=== PATIENT | female | born 1970 | race Caucasian/White ===

== ENCOUNTER 2018-11-19 01:20 | Outpatient (CLI) | payer OTHER, SELFPAY ==
[2018-11-19 10:31] LABS: Hemoglobin A1C 6.1 % (4.5-6.2)
[2018-11-19 10:53] LABS: BUN 19 mg/dL (7-18); CREATININE 0.83 mg/dL (0.55-1.02); Calcium 9.4 mg/dL (8.5-10.1); Chloride 103 mmol/L (98-107); Cholesterol 201 mg/dL (50-200); Glucose 107 mg/dL (70-100); HDL Cholesterol 35 mg/dL (40-60); LDL CHOLESTEROL 142 mg/dL (<100); Potassium 4.4 mmol/L (3.5-5.1); Sodium 139 mmol/L (136-145); Triglyceride 93 mg/dL (30-150)
== END 2018-11-19 01:40 ==
PROVIDERS: PCP Nurse Practitioner Family; Visit Provider Nurse Practitioner Family
DX: E78.5 Hyperlipidemia, unspecified (principal); E03.9 Hypothyroidism, unspecified; R73.01 Impaired fasting glucose
CPT/HCPCS: 36415; 80048; 80061; 83721; 83036; 84439; 84443

== ENCOUNTER 2019-02-27 13:27 | Outpatient (CLI) | payer OTHER, SELFPAY ==
[2019-02-27 15:29] LABS: Vitamin B12 312 pg/mL (193-986)
[2019-02-27 15:51] LABS: TSH (W/Ref FT4) 0.06 uIU/mL (0.36-3.74)
[2019-02-27 16:14] LABS: FREE T4 1.17 ng/dL (0.76-1.46)
[2019-02-28 13:57] LABS: Total Protein 6.8 g/dl (6.3-8.2)
== END 2019-02-27 13:47 ==
PROVIDERS: PCP Nurse Practitioner Family; Visit Provider Nurse Practitioner Family
DX: E03.9 Hypothyroidism, unspecified (principal); R20.2 Paresthesia of skin
CPT/HCPCS: 82607; 84165; 84439; 84443

== ENCOUNTER 2019-05-09 12:14 | Outpatient (CLI) | payer OTHER, SELFPAY ==
[2019-05-09 14:10] LABS: TSH (W/Ref FT4) 0.19 uIU/mL (0.36-3.74)
[2019-05-09 14:32] LABS: FREE T4 1.51 ng/dL (0.76-1.46)
== END 2019-05-09 12:34 ==
PROVIDERS: PCP Nurse Practitioner Family; Visit Provider Nurse Practitioner Family
DX: E03.9 Hypothyroidism, unspecified (principal)
CPT/HCPCS: 36415; 84439; 84443

== ENCOUNTER → 2019-11-30 08:39 | Outpatient (CLI) | payer BC, SELFPAY ==
[2019-11-30 18:00] LABS: TSH (W/Ref FT4) 39.49 uIU/mL (0.36-3.74)
[2019-11-30 18:01] LABS: FREE T4 0.67 ng/dL (0.76-1.46)
== END ==
PROVIDERS: PCP Nurse Practitioner Family; Visit Provider Nurse Practitioner Family
DX: E03.9 Hypothyroidism, unspecified (principal)
CPT/HCPCS: 36415; 84439; 84443

== ENCOUNTER → 2020-02-12 02:31 | Outpatient (CLI) | payer BC, SELFPAY ==
[2020-02-12 14:22] LABS: TSH (W/Ref FT4) 4.68 uIU/mL (0.36-3.74)
[2020-02-12 14:39] LABS: FREE T4 1.21 ng/dL (0.76-1.46)
== END ==
PROVIDERS: PCP Nurse Practitioner Family; Visit Provider Nurse Practitioner Family
DX: E03.9 Hypothyroidism, unspecified (principal)
CPT/HCPCS: 36415; 84439; 84443

== ENCOUNTER → 2020-02-22 02:53 | Outpatient (CLI) | payer BC, SELFPAY ==
[2020-02-22 08:36] LABS: Hemoglobin A1C 7.7 % (3.8-5.6)
[2020-02-22 09:38] LABS: ALT 32 U/L (14-59); AST 14 U/L (15-37); Albumin 3.9 g/dL (3.4-5.0); Alkaline Phosphatase 70 U/L (46-116); Anion Gap 8.3 mmol/L (3-11); BUN 17 mg/dL (7-18); Bilirubin, Total 0.4 mg/dL (0.2-1.0); CO2 26.7 mmol/L (21.0-32.0); CREATININE 0.78 mg/dL (0.55-1.02); Calcium 9.2 mg/dL (8.5-10.1); Chloride 101 mmol/L (98-107); Glucose 201 mg/dL (74-106); Potassium 4.8 mmol/L (3.5-5.1); Sodium 136 mmol/L (136-145); Total Protein 6.9 g/dL (6.4-8.2)
== END ==
PROVIDERS: PCP Nurse Practitioner Family; Visit Provider Nurse Practitioner Family
DX: R73.01 Impaired fasting glucose (principal); Z51.81 Encounter for therapeutic drug level monitoring
CPT/HCPCS: 36415; 80053; 83036

== ENCOUNTER 2020-03-21 15:14 | Outpatient (REF) | payer BC, SELFPAY ==
[2020-03-21 19:01] LABS: COMMENT (LAB VIEW ONLY) 34.61 mg/dL
== END 2020-03-21 15:34 ==
LOC: LBN 15:14
PROVIDERS: PCP Nurse Practitioner Family; Visit Provider Nurse Practitioner Family
DX: E11.9 Type 2 diabetes mellitus without complications (principal)
CPT/HCPCS: 82043; 82570

== ENCOUNTER 2020-04-05 06:06 | Emergency (ER) | payer SELFPAY ==
[2020-04-05 06:10] VITALS: BP 109/60; PULSE 85; RESP 18; TEMP 36.1; O2SAT 98
--- NOTE | 2020-04-05 06:10 | ED.GENADUL_ITS ---
Discharge Plan Disposition Patient Disposition: HOME Condition: Good Discharge Details Clinical Impression: Lower back injury Primary Care Provider: Bessie Maynard ED Provider: Blaine Lozano Meds and New Rx's Prescriptions: New ibuprofen 600 mg tablet 600 mg PO Q8H PRNQty: 15 RF: 0 cyclobenzaprine 10 mg tablet 10 mg PO Q8H PRN (Reason: Spasms) Qty: 15 RF: 0 Continued (DME) blood-glucose meter Misc See Rx Instructions .ROUTE .MEDSUPPLY Qty: 1 RF: 0 (DME) Blood Glucose Test Strip See Rx Instructions .ROUTE .MEDSUPPLY Qty: 100 RF: 3 (DME) lancets Misc See Rx Instructions .ROUTE .MEDSUPPLY Qty: 100 RF: 3 loratadine [Claritin] 10 MG tablet 10 mg PO PRN Qty: 1 RF: 0 gabapentin 100 mg capsule 100 - 200 mg PO HS PRN (Reason: pain) Qty: 180 RF: 3 furosemide 20 mg tablet 20 mg PO QAM Qty: 90 RF: 3 duloxetine [Cymbalta] 30 mg capsule,delayed release(DR/EC) 30 mg PO DAILY Qty: 90 RF: 3 levothyroxine 175 mcg tablet 175 mcg PO DAILY Qty: 90 RF: 3 valacyclovir [Valtrex] 500 mg tablet 500 mg PO BID RF: 0 Discharge Instructions Instructions: Low Back Strain (ED) Additional Instructions: Activity as tolerated but avoid significant bending or lifting. Important to stay active otherwise you will become more stiff with increasing pain. Recommend ice on and off for the first couple of days. Then switch to heat and gentle stretching. Ibuprofen and cyclobenzaprine for pain and spasm. Referral to occupational medicine for follow-up next week. Call today to make appointment. Return to ED for neurologic changes, bladder or bowel dysfunction, significantly worsening pain, other concerns or problems. Stand Alone Forms: Work Release Referrals: Occupational Medicine [Outside] Medical Decision Making Patient here with back injury after falling out of chair at work. There is no midline spinal tenderness. No indication for spine x-ray given mechanism and lack of spinal tenderness. There are no neurologic changes. Likely muscle strain and spasm from the fall. She will be given IM Toradol and p.o. Flexeril. Will be discharged on ibuprofen and Flexeril with referral to occupational medicine next week for recheck. Activity as tolerated. Ice on and off for the first couple of days before switching to heat. Gentle stretching. Return to ED if any neurologic changes, significantly worse pain, other concerns. HPI General Mode of arrival: ambulatory . Date/Time Provider Initiated Documentation: 04/05/20 06:10 . Limitations to Documentation: no limitations . Information obtained by: patient and RN notes reviewed . HPI Narrative: Patient presents to ED with low left sided back pain after falling out of a chair at work. She had bent over to tie her shoe. She was in a chair with wheels. It went backwards and she fell out of the chair. She struck her back on the chair while she fell. Not clear whether she hit the floor or not but she reports immediate pain in the left lower back that is described as burning in nature. She has no numbness or weakness in her legs. She has no midline pain. She was able to drive herself here. However, she reports significant pain and difficulty moving. She did not strike her head or have loss of consciousness. Related Data Home Medications Medication Instructions Recorded Confirmed loratadine [Claritin] 10 mg PO PRN #1 03/16/16 04/05/20 gabapentin 100 mg capsule 100 - 200 mg PO HS PRN #180 tab-cap 04/14/19 04/05/20 furosemide 20 mg tablet 20 mg PO QAM #90 tab 04/26/19 04/05/20 blood sugar diagnostic #100 each 03/21/20 03/21/20 blood-glucose meter #1 each 03/21/20 03/21/20 lancets #100 each 03/21/20 03/21/20 duloxetine 30 mg capsule,delayed 30 mg PO DAILY #90 tab-cap 03/28/20 04/05/20 release levothyroxine 175 mcg tablet 175 mcg PO DAILY #90 tab-cap 03/28/20 04/05/20 cyclobenzaprine 10 mg PO Q8H PRN #15 tab 04/05/20 ibuprofen 600 mg PO Q8H PRN #15 tab 04/05/20 valacyclovir [Valtrex] 500 mg PO BID 04/05/20 04/05/20 Previous Rx's Medication Instructions Recorded gabapentin 100 mg capsule 100 - 200 mg PO HS PRN #180 tab-cap 04/14/19 furosemide 20 mg tablet 20 mg PO QAM #90 tab 04/26/19 blood sugar diagnostic #100 each 03/21/20 blood-glucose meter #1 each 03/21/20 lancets #100 each 03/21/20 duloxetine 30 mg capsule,delayed 30 mg PO DAILY #90 tab-cap 03/28/20 release levothyroxine 175 mcg tablet 175 mcg PO DAILY #90 tab-cap 03/28/20 cyclobenzaprine 10 mg PO Q8H PRN #15 tab 04/05/20 ibuprofen 600 mg PO Q8H PRN #15 tab 04/05/20 Allergies Allergy/AdvReac Type Severity Reaction Status Date / Time oxycodone AdvReac Intermediate vomitting Verified 04/05/20 06:16 omeprazole AdvReac Mild GI upset Verified 04/05/20 06:16 Review of Systems Constitutional Constitutional: Denies fever(s) and Denies weakness Cardiovascular Cardiovascular: Denies dyspnea Respiratory Respiratory: Denies cough and Denies dyspnea Musculoskeletal Musculoskeletal: Reports back pain, Denies numbness and Denies tingling Neurologic Neurologic: Denies numbness, Denies tingling and Denies weakness [facility] Medical History (Updated 04/05/20 @ 06:26 by Blaine Lozano MD) Anxiety (11/24/12) Bilateral carpal tunnel syndrome 02/2019 Neuro consult w/ NCS showing mild; pt declined referral to Ortho (also had NCS's in 2014 & 2008) Chronic pain Gastroesophageal reflux disease Herpes simplex Hyperlipidemia (11/24/12) 10/2018 labwork: 10-year ASCVD risk = ~4.9% --> statin not indicated at this time Hypothyroidism (11/24/12) TSH goal = 1.5-2.0 Lateral epicondylitis of left elbow (08/13/16) Osteoarthritis of cervical spine (04/02/16) Plantar fasciitis Tobacco use disorder Type 2 diabetes mellitus Surgical History Status post cholecystectomy (~2009) Status post tubal ligation (~1998) Family History Mother Diabetes Hyperlipidemia Father Essential hypertension Hyperlipidemia Grandmother Diabetes Social History Smoking/Tobacco Use Status: Current every day Tobacco Type: cigarettes Tobacco: How many years used: 30 Alcohol Intake: never Drug use: Never Substance use type: does not use Caregiver/Support person: No Household members: spouse, children and other Details: 2 adopted children Housing: house Number of Children: 5 Communication Needs: None Do you need help understanding health information?: Rarely current occupation: [employer] Pets and animals: Yes Sexually active: No Do you think of yourself as: straight/heterosexual Current gender identity: female What is your relationship status?: How often do you talk on the phone with friends or family?: three or more times per week How often do you get together with friends or relatives?: never How often do you attend synagogue or anabaptism services?: decline to answer Do you belong to any clubs or organized social groups?: no Panel score (0-1 are the most socially isolated patients): 2 What type of physical activity do you participate in: none Frequency: 5-6 times per week Tabitha/Islam: None Special tabitha needs: No Seatbelt use: never Helmet use: Yes Helmet use: sometimes Drive intox or ride w/intox skip load driver: No Water heater temp set <120 deg: Yes Working smoke detector in home: Yes Fire extinguisher in home: Yes Carbon monox detector in home: Yes Firearms in home: Yes Firearms unloaded and locked: Yes Do you feel safe at home: Yes Do you feel safe in your relationship?: Yes Exam Narrative Exam Narrative: Vitals: Afebrile. Normal vitals and room air pulse ox. Const: WDWN female in NAD. HEENT: NC/AT. Normal facial exam. Eyes: Normal conjunctiva and sclera. Neck: Supple. Trachea midline. Lungs: Normal respiratory effort. Back: No midline spinal tenderness. Tender palpation left lower lumbar region. Decreased range of motion. Sitting stiffly upright on stretcher. Neuro: A+O x 3. Normal speech, mentation. Cranial nerves II - XII grossly intact. No gross motor or sensory deficit. She has sensation and normal strength in lower extremities. She does walk stiffly and slowly. Skin: Warm and dry without abrasion
[2020-04-05] MEDS: Cyclobenzaprine 10 MG TAB PO (06:22)
[2020-04-05] MEDS: Ketorolac 30 MG/ML VIAL IM (06:23)
== END 2020-04-05 06:39 | disposition home or self-care (01) ==
LOC: ER 06:32
PROVIDERS: Emergency Provider Emergency Medicine; PCP Nurse Practitioner Family
DX: S39.82XA Other specified injuries of lower back, initial encounter (principal); W07.XXXA Fall from chair, initial encounter; Y99.0 Civilian activity done for income or pay; E11.9 Type 2 diabetes mellitus without complications
CPT/HCPCS: 96372; 99284; J1885

== ENCOUNTER 2020-10-07 10:24 | Outpatient (CLI) | payer OTHER, SELFPAY ==
[2020-10-08 13:47] LABS: COVID-19 RT-PCR UVMMC Result Negative (Negative)
== END 2020-10-07 10:25 | disposition home or self-care (01) ==
PROVIDERS: PCP Nurse Practitioner Family; Visit Provider Nurse Practitioner Family
DX: Z20.828 Contact with and (suspected) exposure to other viral communicable diseases (principal)
CPT/HCPCS: U0003

== ENCOUNTER 2021-01-22 16:41 | Outpatient (REF) | payer OTHER, SELFPAY ==
--- NOTE | 2021-01-22 15:40 | PAPFT_PTH ---
PATIENT: Danni Gamble LOC: [facility] U#:[id number] AGE/SX: 51/F ROOM: RE01/22/[address]: Samira Jarvis DO : 1970 BED: DIS: 01/22/2021 SPEC #: [id number] RECD: 01/22/21 18:19 STATUS: ARRON REQ #: [id number] MENDY: 01/22/21 15:[address]: Samira Jarvis DEPT: [facility] Cytology RECD BY: Jovana Cueva ENTERED: 01/22/21 18:20 SP TYPE: PAPFT ELIZABETH DR: Bessie Maynard, CESAR Tissues: 1 - CX/ENDOCX FOR PAP SMEARS Procedures: PAP THIN PREP/[facility] Screening Comments: [id number] (UNSATISFACTORY FOR EVALUATION)
== END 2021-01-22 16:42 | disposition home or self-care (01) ==
LOC: LBN 16:41
PROVIDERS: PCP Nurse Practitioner Family; Visit Provider Obstetrics & Gynecology
DX: Z12.4 Encounter for screening for malignant neoplasm of cervix (principal); R87.615 Unsatisfactory cytologic smear of cervix
CPT/HCPCS: 88142

== ENCOUNTER 2021-03-04 01:50 | Outpatient (CLI) | payer OTHER, SELFPAY ==
--- NOTE | 2021-03-04 08:15 | DI.US_ITS ---
Exam(s) US PELVIS TRANSVAGINAL EXAM: US PELVIS TRANSVAGINAL CLINICAL HISTORY: Check endometrial stripe, postmenopausal bleeding, N95.0 TECHNIQUE: Transabdominal and transvaginal imaging was performed using standard protocol. COMPARISON: No exams were available for comparison FINDINGS: KIDNEYS: Kidneys are symmetric in size. No evidence of renal calculi. No evidence of hydronephrosis. No renal mass or cyst identified. Transabdominal images are limited by empty bladder. UTERUS: Anteverted. 7.4 x 4.4 x 4.9 cm Endometrium: 2 millimeters Myometrium: Unremarkable. Cervix: Multiple nabothian cysts. OVARIES: Right: Cyst or mass: None. Left: Not visualized DOPPLER: Color: Symmetric and uniform flow to the right ovary. No hyperemia. Duplex: Normal ovarian arterial waveforms visualized. CUL-DE-SAC: Free fluid: None. IMPRESSION: 1. Multiple nabothian cysts. No visible fibroids. Normal-appearing endometrial stripe. 2. Nonvisualization of the left ovary. DATA REPOSITORY:
--- NOTE | 2021-03-04 15:22 | DI.MAMMO_ITS ---
Exam(s) MAMMO SCREENING EXAM: MAMMO SCREENING CLINICAL HISTORY: screening, Z12.39 TECHNIQUE: Mammograms were interpreted according to the usual protocol including computer analysis w [employer]odaplanes CAD system, tomosynthesis and C-view imaging. COMPARISON: No exams were available for comparison. Baseline examination. FINDINGS: The breasts are composed of scattered fibroglandular densities, Breast Density category B. No suspicious masses or suspicious microcalcifications are seen. No skin thickening or abnormal axillary lymph nodes are seen. There has been no significant change from prior exams. IMPRESSION: BI-RADS Category 1, Negative mammogram Yearly screening mammography is recommended. Breast Density - Category B, scattered fibroglandular densities. A negative radiographic report should not delay biopsy if a dominant or clinically suspicious mass is present. Up to ten percent of cancers are not identified on mammography. A negative report may reinforce clinical impression. Adenosis and dense breasts may obscure an underlying neoplasm. False positive reports average 6 to 10%. Patient will receive a letter notifying them of these results.
== END 2021-03-04 02:10 ==
PROVIDERS: PCP Nurse Practitioner Family; Visit Provider Obstetrics & Gynecology
DX: Z12.31 Encounter for screening mammogram for malignant neoplasm of breast (principal); N95.0 Postmenopausal bleeding; R91.8 Other nonspecific abnormal finding of lung field; N88.8 Other specified noninflammatory disorders of cervix uteri
CPT/HCPCS: 77063; 77067; 76830; 76856

== ENCOUNTER 2021-08-05 02:02 | Outpatient (CLI) | payer OTHER, SELFPAY ==
[2021-08-05 09:07] LABS: Hemoglobin A1C 6.7 % (<5.7)
[2021-08-05 09:08] LABS: ALT 30 U/L (14-59); AST 14 U/L (15-37); Albumin 4.3 g/dL (3.4-5.0); Alkaline Phosphatase 70 U/L (46-116); BUN 20 mg/dL (7-18); Bilirubin, Total 0.4 mg/dL (0.2-1.0); CO2 28.5 mmol/L (21.0-32.0); CREATININE 0.8 mg/dL (0.55-1.02); Calcium 9.2 mg/dL (8.5-10.1); Calculated LDL 158 mg/dL (<100); Cholesterol 231 mg/dL (<200); Glucose 145 mg/dL (74-106); HDL Cholesterol 40 mg/dL (40-60); TSH (W/Ref FT4) 16.33 uIU/mL (0.36-3.74); Total Protein 7.5 g/dL (6.4-8.2); Triglyceride 168 mg/dL (<150)
[2021-08-05 09:10] LABS: Anion Gap 8.5 mmol/L (3-11); Chloride 100 mmol/L (98-107); Potassium 4.5 mmol/L (3.5-5.1); Sodium 137 mmol/L (136-145)
[2021-08-05 09:35] LABS: FREE T4 0.77 ng/dL (0.76-1.46)
[2021-08-05 17:59] LABS: FSH 15.3 mIU/mL (See Note)
== END 2021-08-05 02:03 | disposition home or self-care (01) ==
LOC: LBO 02:03
PROVIDERS: Obstetrics & Gynecology; PCP Nurse Practitioner Family; Visit Provider Nurse Practitioner Family
DX: E11.65 Type 2 diabetes mellitus with hyperglycemia (principal); E03.9 Hypothyroidism, unspecified; E78.5 Hyperlipidemia, unspecified; N95.0 Postmenopausal bleeding
CPT/HCPCS: 36415; 80053; 80061; 83001; 83036; 84439; 84443

== ENCOUNTER 2021-10-29 03:04 | Outpatient (CLI) | payer OTHER, SELFPAY | END 2021-10-29 03:05 | disposition home or self-care (01) | PROVIDERS: PCP Nurse Practitioner Family; Visit Provider Nurse Practitioner Family ==

== ENCOUNTER 2021-11-21 01:58 | Outpatient (CLI) | payer OTHER, SELFPAY ==
[2021-11-21 14:56] LABS: TSH (W/Ref FT4) 0.22 uIU/mL (0.36-3.74)
[2021-11-21 15:13] LABS: FREE T4 1.44 ng/dL (0.76-1.46)
== END 2021-11-21 01:59 | disposition home or self-care (01) ==
LOC: LBO 01:59
PROVIDERS: PCP Nurse Practitioner Family; Visit Provider Nurse Practitioner Family
DX: E03.9 Hypothyroidism, unspecified (principal)
CPT/HCPCS: 36415; 84439; 84443

== ENCOUNTER 2022-01-09 01:42 | Outpatient (CLI) | payer OTHER, SELFPAY ==
[2022-01-09 12:20] LABS: TSH (W/Ref FT4) 0.14 uIU/mL (0.36-3.74)
[2022-01-09 12:35] LABS: FREE T4 1.32 ng/dL (0.76-1.46)
== END 2022-01-09 01:43 | disposition home or self-care (01) ==
LOC: LBO 01:43
PROVIDERS: PCP Nurse Practitioner Family; Visit Provider Nurse Practitioner Family
DX: E03.9 Hypothyroidism, unspecified (principal)
CPT/HCPCS: 36415; 84439; 84443

== ENCOUNTER 2022-09-25 00:36 | Outpatient (CLI) | payer OTHER, SELFPAY ==
--- NOTE | 2022-09-25 07:15 | DI.RAD_ITS ---
Exam(s) XR SHOULDER RT COMPLETE 2+V EXAM: XR SHOULDER RT COMPLETE 2+V CLINICAL HISTORY: acute on chronic R shoulder pain,m25.511. TECHNIQUE: 2D digital imaging was performed. COMPARISON: No exams were available for comparison FINDINGS: Five views: No evidence of acute fracture nor dislocation nor diminution of the subacromial space. No obvious de generative changes in the glenohumeral and AC joints. The main finding here is calcific density in the soft tissues adjacent to the greater tuberosity cons istent with calcific rotator cuff tendinitis. This calcific density measures 8 by 4 millimeters. IMPRESSION: Calcific rotator cuff tendinitis. DATA REPOSITORY: RADIATION DOSE DELIVERED:
== END 2022-09-25 00:56 ==
LOC: DI 00:36
PROVIDERS: PCP Nurse Practitioner Family; Visit Provider Nurse Practitioner Family
DX: M25.511 Pain in right shoulder (principal); M75.31 Calcific tendinitis of right shoulder
CPT/HCPCS: 73030

== ENCOUNTER 2022-10-07 02:52 | Outpatient (CLI) | payer OTHER, SELFPAY ==
[2022-10-07 07:46] LABS: ALT 28 U/L (14-59); AST 15 U/L (15-37); Albumin 4.2 g/dL (3.4-5.0); Alkaline Phosphatase 84 U/L (46-116); Anion Gap 8.3 mmol/L (3-11); BUN 16 mg/dL (7-18); Bilirubin, Total 0.4 mg/dL (0.2-1.0); CO2 29.7 mmol/L (21.0-32.0); CREATININE 0.9 mg/dL (0.55-1.02); Calcium 9.6 mg/dL (8.5-10.1); Chloride 103 mmol/L (98-107); Estimated GFR 76.92 (mL/min/1.73m2); Glucose 161 mg/dL (74-106); Hemoglobin A1C 7.4 % (<5.7); Sodium 141 mmol/L (136-145); Total Protein 7.9 g/dL (6.4-8.2)
[2022-10-07 07:47] LABS: COMMENT (LAB VIEW ONLY) 106.09 mg/dL; Microalb ug/mg Crea 7.4 ug/mg Cr
[2022-10-08 10:14] LABS: Hepatitis C Ab w Rflx HCV PCR Negative (Negative)
[2022-10-08 10:33] LABS: HIV-1/2 Ag & Ab Screen Negative (Negative)
== END 2022-10-07 02:53 | disposition home or self-care (01) ==
LOC: LBO 02:52
PROVIDERS: PCP Nurse Practitioner Family; Visit Provider Nurse Practitioner Family
DX: E11.65 Type 2 diabetes mellitus with hyperglycemia (principal); E03.9 Hypothyroidism, unspecified; Z11.4 Encounter for screening for human immunodeficiency virus [HIV]; Z11.59 Encounter for screening for other viral diseases
CPT/HCPCS: 36415; 80053; 86803; 87389; 82043; 82570; 83036

== ENCOUNTER 2022-12-27 08:18 | Emergency (ER) | payer OTHER, SELFPAY ==
[2022-12-27] VITALS (24 sets, daily range): BP systolic 63–109; BP diastolic 38–80; PULSE 68–109; RESP 16; TEMP 36.4; O2SAT 95–99
--- NOTE | 2022-12-27 09:02 | W.ED.GENAD ---
Discharge Plan Disposition Patient Disposition: Home Discharge Details Clinical Impression: Nausea & vomiting, Viral gastroenteritis, Hyponatremia, Acute hypokalemia, Hypocalcemia, Dehydration Primary Care Provider: Bessie Maynard ED Provider: Norm Bain Home Meds and New Rx's Prescriptions: New ondansetron 4 mg tablet,disintegrating 4 mg PO Q6H PRNQty: 14 0RF Continued (DME) Blood Glucose Test Strip See Rx Instructions .ROUTE .MEDSUPPLY Qty: 100 3RF Rx Instructions: As directed to check blood glucose daily. No insulin. Dispense covered brand. diclofenac sodium 1 % gel 2 - 4 g topical QID PRN (Reason: pain) Qty: 100 0RF Rx Instructions: 2G for upper extremity joints; 4G for lower extremity joints (DME) blood-glucose meter Misc See Rx Instructions .ROUTE .MEDSUPPLY Qty: 1 0RF Rx Instructions: As directed to check blood glucose daily. No insulin. Dispense covered brand. valacyclovir 1 gram tablet 2,000 mg PO BID Qty: 4 2RF Rx Instructions: Take 2 g BID for 1 day for recurrent orolabial herpes Ozempic 0.25 mg or 0.5 mg(2 mg/1.5 mL) pen injector 0.5 mg subcut QWEEK Qty: 4 3RF Rx Instructions: Take 0.25 mg once weekly for first 4 weeks, then increase to 0.5 mg once weekly thereafter. acetaminophen 500 mg tablet 500 - 1,000 mg PO TID PRN (Reason: pain) Qty: 270 3RF (DME) lancets Misc See Rx Instructions .ROUTE .MEDSUPPLY Qty: 100 3RF Rx Instructions: As directed to check blood glucose daily. No insulin. Dispense covered brand. levothyroxine 175 mcg tablet See Rx Instructions .ROUTE .COMPLEX Qty: 90 0RF Dose Instruction: TAKE ONE TABLET BY MOUTH EVERY MORNING ON EMPTY STOMACH; AT LEAST 30-60 MIN BEFORE FOOD Rx Instructions: TAKE ONE TABLET BY MOUTH EVERY MORNING ON EMPTY STOMACH; AT LEAST 30-60 MIN BEFORE FOOD celecoxib 100 mg capsule See Rx Instructions .ROUTE .COMPLEX Qty: 60 0RF Dose Instruction: TAKE ONE CAPSULE BY MOUTH TWICE A DAY Rx Instructions: TAKE ONE CAPSULE BY MOUTH TWICE A DAY furosemide 20 mg tablet See Rx Instructions .ROUTE .COMPLEX Qty: 90 3RF Dose Instruction: TAKE ONE TABLET BY MOUTH EVERY MORNING Rx Instructions: TAKE ONE TABLET BY MOUTH EVERY MORNING pantoprazole 40 mg tablet,delayed release (DR/EC) See Rx Instructions .ROUTE .COMPLEX Qty: 90 3RF Dose Instruction: TAKE ONE TABLET BY MOUTH EVERY MORNING AT LEAST 30 MINUTES BEFORE FIRST MEAL Rx Instructions: TAKE ONE TABLET BY MOUTH EVERY MORNING AT LEAST 30 MINUTES BEFORE FIRST MEAL gabapentin 100 mg capsule See Rx Instructions .ROUTE .COMPLEX Qty: 180 3RF Dose Instruction: TAKE ONE TO TWO CAPSULES BY MOUTH AT BEDTIME NEEDED FOR PAIN Rx Instructions: TAKE ONE TO TWO CAPSULES BY MOUTH AT BEDTIME NEEDED FOR PAIN atorvastatin 10 mg tablet See Rx Instructions .ROUTE .COMPLEX Qty: 90 3RF Dose Instruction: TAKE ONE TABLET BY MOUTH EVERY DAY Rx Instructions: TAKE ONE TABLET BY MOUTH EVERY DAY duloxetine 30 mg capsule,delayed release(DR/EC) See Rx Instructions .ROUTE .COMPLEX Qty: 90 3RF Dose Instruction: TAKE ONE CAPSULE BY MOUTH EVERY DAY Rx Instructions: TAKE ONE CAPSULE BY MOUTH EVERY DAY metformin 500 mg tablet extended release 24 hr See Rx Instructions .ROUTE .COMPLEX Qty: 360 3RF Dose Instruction: TAKE 4 TABLETS BY MOUTH EVERY DAY WITH EVENING MEAL Rx Instructions: TAKE 4 TABLETS BY MOUTH EVERY DAY WITH EVENING MEAL Discharge Instructions Instructions: Dehydration (ED), Gastroenteritis (ED) Additional Instructions: You were seen in the emergency department for nausea vomiting and diarrhea. We performed labs that showed some electrolyte abnormalities likely due to dehydration. Your testing was otherwise unremarkable. Your symptoms improved with some IV fluids and nausea medications here. You likely had some dehydration in the setting of a viral gastroenteritis or GI bug. Continue to take Imodium per box directions at home for any diarrhea but stopped taking this at the first signs that the diarrhea is resolving otherwise you may develop constipation. You can continue all your home medications. I have sent a prescription for a nausea medication called ondansetron/Zofran that you can use as needed for nausea or vomiting. Drink plenty of fluids to stay hydrated. Return to the emergency department for worsening nausea or vomiting, any abdominal pain, high fevers or chills, or any other symptoms that are worrisome to you. Follow-up with your primary care doctor. Stand Alone Forms: Work Release Referrals: Bessie Maynard NP [Primary Care Provider] - 1 week Discharge Data Discharge Physician: Norm Bain Medical Decision Making Labs unremarkable. Has some mild electrolyte abnormalities likely secondary to dehydration. Given IV fluids and expect that these will improve. Just with the mild hyponatremia and hypokalemia now tolerating p.o. so should be able to adequately resuscitate these herself at home. She feels markedly improved after IV fluids, analgesia, and nausea medication. Likely represents a viral gastroenteritis. Still without fever or any abdominal tenderness so no role for imaging of the abdomen. She had 1 episode of low blood pressure that did not recur. Might have been measurement error or secondary to dehydration but regardless has now resolved. She feels better and tolerating p.o. and would like to go home. I think that this is reasonable. Will discharge with return precautions. Medical Records Medical records reviewed: Yes I reviewed the patient's medical records. Lab Data Lab results reviewed: Yes I reviewed the patient's lab results. Labs: Mild hyponatremia, mild hypocalcemia, mild hypokalemia. Otherwise labs grossly unremarkable. HPI General Mode of arrival: ambulatory. Date/Time Provider Initiated Documentation: 12/27/22 08:44. Limitations to Documentation: no limitations. Information obtained by: patient. HPI Narrative: 52-year-old female with history of diabetes, GERD, hypothyroidism, is now presenting with nausea vomiting and diarrhea. Started Wednesday. Primarily started with nausea and vomiting. Followed by diarrhea. Worse over the last 24 hours. Going to the bathroom every 30 minutes. Took some Imodium this morning and was still having issues so came here. Having abdominal cramping but no other pain. No fevers or chills presently. Endorsing some body aches. No recent travel or surgeries. No recent fresh water drinking sources. No recent new foods or raw foods. No recent antibiotic use. She was worried and came here. Related Data Home Medications Medication Instructions Recorded Confirmed blood-glucose meter #1 ea 03/21/20 12/27/22 valacyclovir 1 gram tablet 2,000 mg PO BID recurrent 08/08/21 12/27/22 orolabial HSV #4 tab-caps lancets #100 ea 10/27/21 12/27/22 levothyroxine 175 mcg tablet See Rx Instructions .Route 03/19/22 12/27/22 .COMPLEX #90 tabs blood sugar diagnostic (Blood #100 ea 04/01/22 12/27/22 Glucose Test strips) diclofenac sodium 1 % topical gel 2 - 4 g topical QID PRN pain #100 04/01/22 12/27/22 grams acetaminophen 500 mg tablet 500 - 1,000 mg PO TID PRN pain 10/16/22 12/27/22 #270 tab-caps semaglutide 0.25 mg or 0.5 mg (2 0.5 mg (0.4 mL) subcut QWEEK #4 10/16/22 10/21/22 mg/1.5 mL) subcutaneous pen SYRGS injector (Ozempic) atorvastatin 10 mg tablet See Rx Instructions .Route 11/23/22 12/27/22 .COMPLEX #90 tabs celecoxib 100 mg capsule See Rx Instructions .Route 11/23/22 12/27/22 .COMPLEX #60 caps duloxetine 30 mg capsule,delayed See Rx Instructions .Route 11/23/22 12/27/22 release .COMPLEX #90 caps furosemide 20 mg tablet See Rx Instructions .Route 11/23/22 12/27/22 .COMPLEX #90 tabs gabapentin 100 mg capsule See Rx Instructions .Route 11/23/22 12/27/22 .COMPLEX #180 caps metformin 500 mg tablet,extended See Rx Instructions .Route 11/23/22 12/27/22 release 24 hr .COMPLEX #360 tabs pantoprazole 40 mg tablet,delayed See Rx Instructions .Route 11/23/22 12/27/22 release .COMPLEX #90 tabs ondansetron 4 mg disintegrating 4 mg PO Q6H PRN #14 tabs 12/27/22 tablet Previous Rx's Medication Instructions Recorded blood-glucose meter #1 ea 03/21/20 valacyclovir 1 gram tablet 2,000 mg PO BID recurrent 08/08/21 orolabial HSV #4 tab-caps lancets #100 ea 10/27/21 levothyroxine 175 mcg tablet See Rx Instructions .Route 03/19/22 .COMPLEX #90 tabs blood sugar diagnostic (Blood #100 ea 04/01/22 Glucose Test strips) diclofenac sodium 1 % topical gel 2 - 4 g topical QID PRN pain #100 04/01/22 grams acetaminophen 500 mg tablet 500 - 1,000 mg PO TID PRN pain 10/16/22 #270 tab-caps semaglutide 0.25 mg or 0.5 mg (2 0.5 mg (0.4 mL) subcut QWEEK #4 10/16/22 mg/1.5 mL) subcutaneous pen SYRGS injector (Ozempic) atorvastatin 10 mg tablet See Rx Instructions .Route 11/23/22 .COMPLEX #90 tabs celecoxib 100 mg capsule See Rx Instructions .Route 11/23/22 .COMPLEX #60 caps duloxetine 30 mg capsule,delayed See Rx Instructions .Route 11/23/22 release .COMPLEX #90 caps furosemide 20 mg tablet See Rx Instructions .Route 11/23/22 .COMPLEX #90 tabs gabapentin 100 mg capsule See Rx Instructions .Route 11/23/22 .COMPLEX #180 caps metformin 500 mg tablet,extended See Rx Instructions .Route 11/23/22 release 24 hr .COMPLEX #360 tabs pantoprazole 40 mg tablet,delayed See Rx Instructions .Route 11/23/22 release .COMPLEX #90 tabs ondansetron 4 mg disintegrating 4 mg PO Q6H PRN #14 tabs 12/27/22 tablet Allergies Allergy/AdvReac Type Severity Reaction Status Date / Time empagliflozin Allergy Mild Itching Verified 12/27/22 08:26 oxycodone AdvReac Intermediate vomitting Verified 12/27/22 08:26 omeprazole AdvReac Mild GI upset Verified 12/27/22 08:26 General Stated Complaint: Nausea/Vomit/Diar CAM: 3 Review of Systems Constitutional Constitutional: Denies chills, Denies fever(s) and Denies headache(s) Eyes Eyes: Denies change in vision ENT Ears, Nose, Mouth, and Throat: Denies headache(s) and Denies odynophagia Cardiovascular Cardiovascular: Denies chest pain and Denies dyspnea Respiratory Respiratory: Denies dyspnea Gastrointestinal Gastrointestinal: Denies abdominal pain, Reports diarrhea, Reports nausea, Denies odynophagia and Reports vomiting Genitourinary Genitourinary: Denies abnormal vaginal bleeding, Denies dysuria, Denies urinary urgency and Denies vaginal discharge Musculoskeletal Musculoskeletal: Denies myalgias Integumentary/Breasts Skin/Breast: Denies changing lesions Neurologic Neurologic: Denies behavioral changes and Denies headache(s) Psychiatric Psychiatric: Denies behavioral changes Endocrine Endocrine: Denies heat intolerance Hematologic/Lymphatic Hematologic/Lymphatic: Denies lymphadenopathy PFSH All Active Problems (Updated 12/27/22 @ 11:11 by Norm Bain MD) Nausea & vomiting (Acute) Viral gastroenteritis (Acute) Hyponatremia (Acute) Acute hypokalemia (Acute) Hypocalcemia (Acute) Dehydration (Acute) Diabetic retinopathy of both eyes (Acute 02/06/22) bilateral Piriformis syndrome of left side (Acute) Perimenopause (Acute) Urinary incontinence (Acute) Postmenopausal bleeding (Acute) Low back pain (Acute) Type 2 diabetes mellitus (Acute) Osteoarthritis of cervical spine (Chronic 04/02/16) Hypothyroidism (Chronic 11/24/12) TSH goal = 1.5-2.0 Herpes simplex (Chronic) Fatigue (Chronic) Anxiety (Chronic 11/24/12) Tobacco use disorder (Chronic) Bilateral carpal tunnel syndrome (Chronic) 02/2019 Neuro consult w/ NCS showing mild; pt declined referral to Ortho (also had NCS's in 2014 & 2008) Hyperlipidemia (Chronic 11/24/12) 07/2021 labwork: 10-year ASCVD risk = ~3.7% --> statin not indicated at this time Knee pain (Chronic) Bilateral Medical History Chronic pain Encounter for insertion of mirena IUD (08/29/15) placed for menorrhagia 08/06/15 Lateral epicondylitis of left elbow (08/13/16) Menorrhagia, premenopausal (06/25/15) Plantar fasciitis Surgical History Status post cholecystectomy (~2009) Status post tubal ligation (~1998) Family History Mother Diabetes Hyperlipidemia Father Essential hypertension Hyperlipidemia Grandmother Diabetes Social History Smoking/Tobacco Use Status: Current every day Tobacco Type: cigarettes Tobacco: How many years used: 30 Smoking risk assessment performed?: Yes Alcohol Intake: current Alcohol Intake frequency: holidays/special occasions only Alcohol type: wine Drug use: Never Substance use type: does not use Adopted: No Caregiver/Support person: No Foster care: No Household members: spouse, children and other Details: 2 adopted children Housing: house Number of Children: 6 number of grandchildren: 4 Communication Needs: None Education Level: high school Do you need help understanding health information?: Rarely current occupation: Cook Pets and animals: Yes Pets and animals: dog(s) Sexually active: No Do you think of yourself as: straight/heterosexual Current gender identity: female What is your relationship status?: How often do you talk on the phone with friends or family?: once per week How often do you get together with friends or relatives?: never How often do you attend jehovah's witness or buddhist services?: decline to answer Do you belong to any clubs or organized social groups?: no Panel score (0-1 are the most socially isolated patients): 1 What type of physical activity do you participate in: none Tabitha/Anabaptist: None Special tabitha needs: No Seatbelt use: always Helmet use: Yes Helmet use: sometimes Drive intox or ride w/intox test car driver: No Water heater temp set <120 deg: Yes Working smoke detector in home: Yes Fire extinguisher in home: Yes Carbon monox detector in home: Yes Firearms in home: Yes Firearms unloaded and locked: Yes Do you feel safe at home: Yes Do you feel safe in your relationship?: Yes Exam Const General: cooperative Nutritional Appearance: average body habitus Orientation: alert, awake and oriented x3 HENMT Head: normal to inspection Ears: external ears normal Mouth: moist mucous membranes Eyes Pupils: PERRL EOM: EOM intact bilaterally and No nystagmus Neck Neck: full ROM and no tracheal deviation Chest Chest: normal inspection of the chest Resp Auscultation: clear to auscultation bilaterally Cardio Rate: regular rate Rhythm: regular rhythm GI Inspection: normal to inspection Palpation: soft, no guarding, not rigid and nontender Other: Reporting intermittent abdominal cramping but no tenderness on examination. Back/Spine/Pelvis Back: No no CVA tenderness Thoracic/Lumbar Spine: thoracic and lumbar spine normal to inspection Skin General skin exam: no rashes or lesions noted Neuro General: patient alert, patient awake and patient oriented x3 Cranial Nerves: CN's II-XI intact bilaterally, PERRL and no nystagmus Cognition: normal cognition Motor: muscle tone normal throughout and strength 5/5 throughout Sensory Exam: no sensory deficits noted Extrem General: normal to inspection Course Reevaluation(s) Initial Evaluation: 52-year-old female presents with nausea vomiting and diarrhea. Suspect this represents a viral gastroenteritis. Has some signs of dehydration we will give some IV fluids. We will give some nausea medications help with her symptoms. Can send stool studies if she gives us a sample here but low suspicion for any serious bacterial pathogen given no risk factors or red flag signs. No risk factors for C. difficile but can send sample if patient is able to give us a stool sample. We will get broad labs look for electrolyte or metabolic cause of the patient's symptoms. Doubt biliary source of the patient's nausea but will send biliary labs look for signs of hepatitis, pancreatitis, or biliary disease. We will give some Toradol given the muscle aches likely from the viral gastroenteritis. We will continue to monitor while awaiting initial testing and response to therapy. Vital Signs Vital signs: Vital Signs Temperature 36.4 C 12/27/22 08:21 Pulse 109 H 12/27/22 08:21 Respiratory Rate 16 12/27/22 08:21 Blood Pressure 109/79 12/27/22 08:21 Pulse Oximetry 99 12/27/22 08:21 Temperature 36.4 C 12/27/22 08:21 Temperature Source Oral 12/27/22 08:21 Pulse 109 H 12/27/22 08:21 Respiratory Rate 16 12/27/22 08:21 Respiratory Effort Normal, Non-Labored 12/27/22 08:42 Blood Pressure 109/79 12/27/22 08:21 Blood Pressure Position Sitting 12/27/22 08:21 Pulse Oximetry 99 12/27/22 08:21 Oxygen Delivery Method Room Air 12/27/22 08:21 Oxygen Flow Rate 0 12/27/22 08:21 Pain Level 6 12/27/22 08:21 PAWSS Have you Been Recently Intoxicated or Drunk Within the Last 30 days?: No Have you Ever Experienced Previous Episodes of Alcohol Withdrawal?: No Have you ever Experienced Withdrawal Seizures?: No Have you ever Experienced Delirium Tremens(DT)s?: No Have you ever undergone Alcohol Rehabilitation Treatment (i.e, inpt ot outpatient treatment programs)?: No Have you ever Experienced Blackouts?: No Have you ever Combined Alcohol with other Downers within the last 90 days?: No Have you ever Combined Alcohol with any other Substance of Abuse during the last 90 days?: No Positive Blood Alcohol level on Presentation? [PCS.BAL]: No Evidence of Increased Autonomic Activity (i.e. HR>120, tremor, sweating, agitation, nausea)?: No Result: 0
[2022-12-27] MEDS: Ondansetron 4 MG/2 ML VIAL IVP ×2 (09:04→10:46)
[2022-12-27] MEDS: Ketorolac 15 MG/ML VIAL IVP ×2 (09:04→10:46)
[2022-12-27] MEDS: Lactated Ringers 1,000 ML 1000 ML IV (09:05)
[2022-12-27 09:06] LABS: Abs Immature Grans 0.02 10^3/uL (0.0-0.06); Absolute Basophil Count 0.03 10^3/uL (0.0-0.2); Absolute Eosinophil Count 0.09 10^3/uL (0.0-0.7); Absolute Lymphocyte Count 0.98 10^3/uL (1.2-3.4); Absolute Monocyte Count 0.59 10^3/uL (0.1-0.8); Absolute Neutrophil Count 5.05 10^3/uL (1.2-6.7); Basophils % 0.4; Eosinophils % 1.3; HCT 49.8 % (36.0-46.0); HGB 17.2 g/dL (11.2-15.7); Immature Grans % 0.3; Lymphocytes % 14.5; MCH 31.3 pg (27.0-33.0); MCHC 34.5 % (32.0-36.0); MCV 91 fL (80-95); MPV 11.8 fL (8.0-11.0); Monocytes % 8.7; Neutrophils % 74.8; Platelet Count 185 10^3/uL (130-400); RDW 13.6 % (11.7-14.6); RDW-SD 45.8 fL; WBC 6.76 10^3/uL (4.4-10.8)
[2022-12-27 09:21] LABS: ALT 123 U/L (14-59); AST 79 U/L (15-37); Albumin 4.2 g/dL (3.4-5.0); Alkaline Phosphatase 99 U/L (46-116); Anion Gap 12.6 mmol/L (3-11); BUN 22 mg/dL (7-18); Bilirubin, Total 0.3 mg/dL (0.2-1.0); CO2 23.4 mmol/L (21.0-32.0); Calcium 8.1 mg/dL (8.5-10.1); Chloride 99 mmol/L (98-107); Estimated GFR 67.78 (mL/min/1.73m2); Glucose 192 mg/dL (74-106); Lipase 29 U/L (16-77); Magnesium 2.2 mg/dL (1.8-2.4); Potassium 3.3 mmol/L (3.5-5.1); Sodium 135 mmol/L (136-145); Total Protein 8.4 g/dL (6.4-8.2)
[2022-12-27] MEDS: Normal Saline 1,000 ML 1000 ML IV (10:03)
[2022-12-27 10:32] LABS: Bilirubin Negative (Negative); Blood Trace-intact (Negative); Clarity Clear (Clear); Glucose Negative (Negative); Ketones Negative (Negative); Leukocyte Esterase Negative (Negative); Nitrite Negative (Negative); Specific Gravity 1.025 (1.005-1.025); Urobilinogen 0.2 mg/dL (Up to 0.2)
[2022-12-27] MEDS: Famotidine 20 MG TAB PO (10:46)
[2022-12-27] MEDS: Mylanta Suspension 30 ML CUP PO (10:46)
[2022-12-27 11:06] LABS: COVID-19 PCR Negative (Negative); Influenza A PCR Negative (Negative); Influenza B PCR Negative (Negative); RSV PCR Negative (Negative)
[2022-12-27 11:09] LABS: Source Nasopharynx
[2022-12-27 14:21] LABS: C Diff PCR Negative (Negative)
[2022-12-29 00:05] LABS: Campylobacter PCR Negative (Negative); Salmonella PCR Negative (Negative); Shiga Toxin PCR Negative (Negative); Shigella/Enteroinvasive Ecoli Negative (Negative)
== END 2022-12-27 11:38 | disposition home or self-care (01) ==
PROVIDERS: Emergency Provider Student in an Organized Health Care Education/Training Program; PCP Nurse Practitioner Family
DX: R11.2 Nausea with vomiting, unspecified (principal); E83.51 Hypocalcemia; E86.0 Dehydration; E87.6 Hypokalemia; A08.4 Viral intestinal infection, unspecified; E87.1 Hypo-osmolality and hyponatremia
CPT/HCPCS: 36415; 80053; 81025; 83690; 87329; 87493; 87505; 87637; 96361; 96374; 96375; 96376; 99284; 81003; 83735; 85025; J1885; J2405

== ENCOUNTER 2022-12-27 13:29 | Outpatient (REF) | payer OTHER, SELFPAY | END 2022-12-27 13:30 | disposition home or self-care (01) | LOC: LBN 13:29 | PROVIDERS: PCP Nurse Practitioner Family; Visit Provider Student in an Organized Health Care Education/Training Program | DX: R19.7 Diarrhea, unspecified (principal) | CPT/HCPCS: 87177 ==

== ENCOUNTER 2022-12-28 06:58 | Emergency (ER) | payer OTHER, SELFPAY ==
[2022-12-28] VITALS (7 sets, daily range): BP systolic 99; BP diastolic 55–66; PULSE 56–80; RESP 15–19; TEMP 36.5; O2SAT 96–100
--- NOTE | 2022-12-28 07:38 | W.ED.GENAD ---
Discharge Plan Disposition Patient Disposition: Home Discharge Details Chief Complaint: Nausea/Vomit/Diar Clinical Impression: Viral gastroenteritis, Diarrhea, Abdominal pain Primary Care Provider: Bessie Maynard ED Provider: Norm Bain Home Meds and New Rx's Prescriptions: No Action (DME) Blood Glucose Test Strip See Rx Instructions .ROUTE .MEDSUPPLY Qty: 100 3RF Rx Instructions: As directed to check blood glucose daily. No insulin. Dispense covered brand. diclofenac sodium 1 % gel 2 - 4 g topical QID PRN (Reason: pain) Qty: 100 0RF Rx Instructions: 2G for upper extremity joints; 4G for lower extremity joints (DME) blood-glucose meter Misc See Rx Instructions .ROUTE .MEDSUPPLY Qty: 1 0RF Rx Instructions: As directed to check blood glucose daily. No insulin. Dispense covered brand. valacyclovir 1 gram tablet 2,000 mg PO BID Qty: 4 2RF Rx Instructions: Take 2 g BID for 1 day for recurrent orolabial herpes Ozempic 0.25 mg or 0.5 mg(2 mg/1.5 mL) pen injector 0.5 mg subcut QWEEK Qty: 4 3RF Rx Instructions: Take 0.25 mg once weekly for first 4 weeks, then increase to 0.5 mg once weekly thereafter. acetaminophen 500 mg tablet 500 - 1,000 mg PO TID PRN (Reason: pain) Qty: 270 3RF (DME) lancets Misc See Rx Instructions .ROUTE .MEDSUPPLY Qty: 100 3RF Rx Instructions: As directed to check blood glucose daily. No insulin. Dispense covered brand. levothyroxine 175 mcg tablet See Rx Instructions .ROUTE .COMPLEX Qty: 90 0RF Dose Instruction: TAKE ONE TABLET BY MOUTH EVERY MORNING ON EMPTY STOMACH; AT LEAST 30-60 MIN BEFORE FOOD Rx Instructions: TAKE ONE TABLET BY MOUTH EVERY MORNING ON EMPTY STOMACH; AT LEAST 30-60 MIN BEFORE FOOD celecoxib 100 mg capsule See Rx Instructions .ROUTE .COMPLEX Qty: 60 0RF Dose Instruction: TAKE ONE CAPSULE BY MOUTH TWICE A DAY Rx Instructions: TAKE ONE CAPSULE BY MOUTH TWICE A DAY furosemide 20 mg tablet See Rx Instructions .ROUTE .COMPLEX Qty: 90 3RF Dose Instruction: TAKE ONE TABLET BY MOUTH EVERY MORNING Rx Instructions: TAKE ONE TABLET BY MOUTH EVERY MORNING pantoprazole 40 mg tablet,delayed release (DR/EC) See Rx Instructions .ROUTE .COMPLEX Qty: 90 3RF Dose Instruction: TAKE ONE TABLET BY MOUTH EVERY MORNING AT LEAST 30 MINUTES BEFORE FIRST MEAL Rx Instructions: TAKE ONE TABLET BY MOUTH EVERY MORNING AT LEAST 30 MINUTES BEFORE FIRST MEAL gabapentin 100 mg capsule See Rx Instructions .ROUTE .COMPLEX Qty: 180 3RF Dose Instruction: TAKE ONE TO TWO CAPSULES BY MOUTH AT BEDTIME NEEDED FOR PAIN Rx Instructions: TAKE ONE TO TWO CAPSULES BY MOUTH AT BEDTIME NEEDED FOR PAIN atorvastatin 10 mg tablet See Rx Instructions .ROUTE .COMPLEX Qty: 90 3RF Dose Instruction: TAKE ONE TABLET BY MOUTH EVERY DAY Rx Instructions: TAKE ONE TABLET BY MOUTH EVERY DAY duloxetine 30 mg capsule,delayed release(/EC) See Rx Instructions .ROUTE .COMPLEX Qty: 90 3RF Dose Instruction: TAKE ONE CAPSULE BY MOUTH EVERY DAY Rx Instructions: TAKE ONE CAPSULE BY MOUTH EVERY DAY metformin 500 mg tablet extended release 24 hr See Rx Instructions .ROUTE .COMPLEX Qty: 360 3RF Dose Instruction: TAKE 4 TABLETS BY MOUTH EVERY DAY WITH EVENING MEAL Rx Instructions: TAKE 4 TABLETS BY MOUTH EVERY DAY WITH EVENING MEAL ondansetron 4 mg tablet,disintegrating 4 mg PO Q6H PRNQty: 14 0RF Discharge Instructions Instructions: Gastroenteritis (ED), Acute Diarrhea (ED) Additional Instructions: You were seen in the emergency department for nausea vomiting and diarrhea and abdominal pain. We performed labs including C. difficile testing and testing of your stool for blood and these were all unremarkable. Your CAT scan was unremarkable. You likely have a viral GI bug. You have other stool studies that have been sent to [facility] and will take a few days to result and we will call you if these are positive. Continue to take the Zofran for nausea. Drink plenty of fluids to stay hydrated. You can take 2 mg of Imodium after every loose stool and up to 16 mg a day. Follow-up with your primary care doctor. You were incidentally found to have some stranding of your mesentery on your CT scan you should follow-up with your primary care doctor about this finding as they may want to repeat imaging in the future to rule out lymphoma. Referrals: Bessie Maynard NP [Primary Care Provider] - 1 week Medical Decision Making 52-year-old female with history of diabetes, GERD, hypothyroidism, presents with diarrhea. She really presents due to the black stools. She was taking Pepto-Bismol through the evening and multiple doses. I suspect this is etiology of her black stools. It does not look like melena but we will send the stool sample for microscopic blood analysis. We will recheck his CBC but gave her multiple liters of IV fluids yesterday and she had a hemoglobin of 17 likely secondary to dehydration yesterday and expect it would likely be lower as she says she has been able to eat and drink without difficulty with the nausea medication I gave her yesterday. We will reorder the stool pathogens, C. difficile, Giardia/Cryptosporidium, and stool ova and parasite. Certainly a positive C. 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 She is reporting some abdominal pain. I think this is most likely cramping but given her representation will get CT abdomen pelvis to rule out intra-abdominal abscess or colitis. We will get broad labs look for electrolyte or metabolic derangement secondary to the profuse diarrhea. Will give IV fluids and other medications to help treat her symptoms. Again I suspect that this is most likely a viral gastroenteritis but certainly C. difficile or other bacterial pathogen is possible and will await initial testing and reevaluate. 1120am Labs and imaging are unremarkable. C. difficile negative. Hemoccult negative and likely has black stools from the Pepto-Bismol. Feels better after fluids and no recurrent stools after Imodium. Educated her on Imodium. She feels better and would like to leave. Still has Zofran at home. Will discharge with return precautions. Medical Records Medical records reviewed: Yes I reviewed the patient's medical records. Imaging Data Radiologic Study: Attestation: I personally reviewed and interpreted this imaging study as follows: Imaging: CT Scan (abdomen and pelvis) Radiologist's impression: IMPRESSION: 1. ? Hazy infiltration of the central mesentery. This is a nonspecific finding which can be seen in the setting of mesenteric panniculitis or early or treated lymphoma. Consider CT follow-up in 3 months to assess for interval changes. 2. ? Prominent amount of fluid in nondilated small bowel and colon, without bowel wall thickening. This could indicate infectious/inflammatory enteritis/colitis. 3. ? Elongation of the right hepatic lobe, which may be due to a normal variant Veronika's lobe type configuration. Correlate with LFTs. Lab Data Lab results reviewed: Yes I reviewed the patient's lab results. HPI General Mode of arrival: ambulatory. Date/Time Provider Initiated Documentation: 12/28/22 07:21. Limitations to Documentation: no limitations. Information obtained by: patient. HPI Narrative: 52-year-old female with history of diabetes, GERD, hypothyroidism, presents with diarrhea. Seen here yesterday for nausea vomiting and diarrhea and improved with IV fluids. Wanted to go home and sent home with prescription for Zofran. Returns now as the diarrhea persisted through the night. Says the nausea is actually improved. She said she had a few episodes of black stools this morning and she was worried and came here. Reporting some abdominal pain. No bloody stools. No vaginal bleeding or discharge. No urinary symptoms. Denying any other complaints. Says she has been taking Pepto-Bismol at home through the night as well as loperamide to a total of 6 mg Related Data Home Medications Medication Instructions Recorded Confirmed blood-glucose meter #1 ea 03/21/20 12/28/22 valacyclovir 1 gram tablet 2,000 mg PO BID recurrent 08/08/21 12/28/22 orolabial HSV #4 tab-caps lancets #100 ea 10/27/21 12/28/22 levothyroxine 175 mcg tablet See Rx Instructions .Route 03/19/22 12/28/22 .COMPLEX #90 tabs blood sugar diagnostic (Blood #100 ea 04/01/22 12/28/22 Glucose Test strips) diclofenac sodium 1 % topical gel 2 - 4 g topical QID PRN pain #100 04/01/22 12/28/22 grams acetaminophen 500 mg tablet 500 - 1,000 mg PO TID PRN pain 10/16/22 12/28/22 #270 tab-caps semaglutide 0.25 mg or 0.5 mg (2 0.5 mg (0.4 mL) subcut QWEEK #4 10/16/22 12/28/22 mg/1.5 mL) subcutaneous pen SYRGS injector (Ozempic) atorvastatin 10 mg tablet See Rx Instructions .Route 11/23/22 12/28/22 .COMPLEX #90 tabs celecoxib 100 mg capsule See Rx Instructions .Route 11/23/22 12/28/22 .COMPLEX #60 caps duloxetine 30 mg capsule,delayed See Rx Instructions .Route 11/23/22 12/28/22 release .COMPLEX #90 caps furosemide 20 mg tablet See Rx Instructions .Route 11/23/22 12/28/22 .COMPLEX #90 tabs gabapentin 100 mg capsule See Rx Instructions .Route 11/23/22 12/28/22 .COMPLEX #180 caps metformin 500 mg tablet,extended See Rx Instructions .Route 11/23/22 12/28/22 release 24 hr .COMPLEX #360 tabs pantoprazole 40 mg tablet,delayed See Rx Instructions .Route 11/23/22 12/28/22 release .COMPLEX #90 tabs ondansetron 4 mg disintegrating 4 mg PO Q6H PRN #14 tabs 12/27/22 12/28/22 tablet Previous Rx's Medication Instructions Recorded blood-glucose meter #1 ea 03/21/20 valacyclovir 1 gram tablet 2,000 mg PO BID recurrent 08/08/21 orolabial HSV #4 tab-caps lancets #100 ea 10/27/21 levothyroxine 175 mcg tablet See Rx Instructions .Route 03/19/22 .COMPLEX #90 tabs blood sugar diagnostic (Blood #100 ea 04/01/22 Glucose Test strips) diclofenac sodium 1 % topical gel 2 - 4 g topical QID PRN pain #100 04/01/22 grams acetaminophen 500 mg tablet 500 - 1,000 mg PO TID PRN pain 10/16/22 #270 tab-caps semaglutide 0.25 mg or 0.5 mg (2 0.5 mg (0.4 mL) subcut QWEEK #4 10/16/22 mg/1.5 mL) subcutaneous pen SYRGS injector (Ozempic) atorvastatin 10 mg tablet See Rx Instructions .Route 11/23/22 .COMPLEX #90 tabs celecoxib 100 mg capsule See Rx Instructions .Route 11/23/22 .COMPLEX #60 caps duloxetine 30 mg capsule,delayed See Rx Instructions .Route 11/23/22 release .COMPLEX #90 caps furosemide 20 mg tablet See Rx Instructions .Route 11/23/22 .COMPLEX #90 tabs gabapentin 100 mg capsule See Rx Instructions .Route 11/23/22 .COMPLEX #180 caps metformin 500 mg tablet,extended See Rx Instructions .Route 11/23/22 release 24 hr .COMPLEX #360 tabs pantoprazole 40 mg tablet,delayed See Rx Instructions .Route 11/23/22 release .COMPLEX #90 tabs ondansetron 4 mg disintegrating 4 mg PO Q6H PRN #14 tabs 12/27/22 tablet Allergies Allergy/AdvReac Type Severity Reaction Status Date / Time empagliflozin Allergy Mild Itching Verified 12/28/22 07:13 oxycodone AdvReac Intermediate vomitting Verified 12/28/22 07:13 omeprazole AdvReac Mild GI upset Verified 12/28/22 07:13 General Stated Complaint: Nausea/Vomit/Diar CAM: 3 Review of Systems Constitutional Constitutional: Denies chills, Denies fever(s) and Denies headache(s) Eyes Eyes: Denies change in vision ENT Ears, Nose, Mouth, and Throat: Denies headache(s) and Denies odynophagia Cardiovascular Cardiovascular: Denies chest pain and Denies dyspnea Respiratory Respiratory: Denies dyspnea Gastrointestinal Gastrointestinal: Reports diarrhea, Denies nausea, Denies odynophagia, Denies vomiting and Reports other (black stools. ) Comments: Mild abdominal pain Genitourinary Genitourinary: Denies dysuria Musculoskeletal Musculoskeletal: Denies myalgias Integumentary/Breasts Skin/Breast: Denies changing lesions Neurologic Neurologic: Denies behavioral changes and Denies headache(s) Psychiatric Psychiatric: Denies behavioral changes Endocrine Endocrine: Denies heat intolerance Hematologic/Lymphatic Hematologic/Lymphatic: Denies lymphadenopathy PFSH All Active Problems (Updated 12/28/22 @ 11:24 by Norm Bain MD) Nausea & vomiting (Acute) Viral gastroenteritis (Acute) Hyponatremia (Acute) Acute hypokalemia (Acute) Hypocalcemia (Acute) Dehydration (Acute) Viral gastroenteritis (Acute) Diarrhea (Acute) Abdominal pain (Acute) Diabetic retinopathy of both eyes (Acute 02/06/22) bilateral Piriformis syndrome of left side (Acute) Perimenopause (Acute) Urinary incontinence (Acute) Postmenopausal bleeding (Acute) Low back pain (Acute) Type 2 diabetes mellitus (Acute) Osteoarthritis of cervical spine (Chronic 04/02/16) Hypothyroidism (Chronic 11/24/12) TSH goal = 1.5-2.0 Herpes simplex (Chronic) Fatigue (Chronic) Anxiety (Chronic 11/24/12) Tobacco use disorder (Chronic) Bilateral carpal tunnel syndrome (Chronic) 02/2019 Neuro consult w/ NCS showing mild; pt declined referral to Ortho (also had NCS's in 2014 & 2008) Hyperlipidemia (Chronic 11/24/12) 07/2021 labwork: 10-year ASCVD risk = ~3.7% --> statin not indicated at this time Knee pain (Chronic) Bilateral Medical History Chronic pain Encounter for insertion of mirena IUD (08/29/15) placed for menorrhagia 08/06/15 Lateral epicondylitis of left elbow (08/13/16) Menorrhagia, premenopausal (06/25/15) Plantar fasciitis Surgical History Status post cholecystectomy (~2009) Status post tubal ligation (~1998) Family History Mother Diabetes Hyperlipidemia Father Essential hypertension Hyperlipidemia Grandmother Diabetes Social History Smoking/Tobacco Use Status: Current every day Tobacco Type: cigarettes Tobacco: How many years used: 30 Smoking risk assessment performed?: Yes Alcohol Intake: current Alcohol Intake frequency: holidays/special occasions only Alcohol type: wine Drug use: Never Substance use type: does not use Adopted: No Caregiver/Support person: No Foster care: No Household members: spouse, children and other Details: 2 adopted children Housing: house Number of Children: 6 number of grandchildren: 4 Communication Needs: None Education Level: high school Do you need help understanding health information?: Rarely current occupation: Cook Pets and animals: Yes Pets and animals: dog(s) Sexually active: No Do you think of yourself as: straight/heterosexual Current gender identity: female What is your relationship status?: How often do you talk on the phone with friends or family?: once per week How often do you get together with friends or relatives?: never How often do you attend jehovah's witness or spiritism services?: decline to answer Do you belong to any clubs or organized social groups?: no Panel score (0-1 are the most socially isolated patients): 1 What type of physical activity do you participate in: none Tabitha/Nondenominational: None Special tabitha needs: No Seatbelt use: always Helmet use: Yes Helmet use: sometimes Drive intox or ride w/intox limo driver: No Water heater temp set <120 deg: Yes Working smoke detector in home: Yes Fire extinguisher in home: Yes Carbon monox detector in home: Yes Firearms in home: Yes Firearms unloaded and locked: Yes Do you feel safe at home: Yes Do you feel safe in your relationship?: Yes Exam Const General: cooperative Nutritional Appearance: average body habitus Orientation: alert, awake and oriented x3 HENMT Head: normal to inspection Ears: external ears normal Mouth: moist mucous membranes Eyes Pupils: PERRL EOM: EOM intact bilaterally and No nystagmus Neck Neck: full ROM and no tracheal deviation Chest Chest: normal inspection of the chest Resp Auscultation: clear to auscultation bilaterally Cardio Rate: regular rate Rhythm: regular rhythm GI Inspection: normal to inspection Palpation: soft, no guarding and not rigid Other: Mild abdominal tenderness but no guarding, rigidity, or rebound. Stool is black but no tarry stools or any sticky consistency. Back/Spine/Pelvis Back: No no CVA tenderness Thoracic/Lumbar Spine: thoracic and lumbar spine normal to inspection Skin General skin exam: no rashes or lesions noted Neuro General: patient alert, patient awake and patient oriented x3 Cranial Nerves: CN's II-XI intact bilaterally, PERRL and no nystagmus Cognition: normal cognition Motor: muscle tone normal throughout and strength 5/5 throughout Sensory Exam: no sensory deficits noted Extrem General: normal to inspection Course Vital Signs Vital signs: Vital Signs Temperature 36.5 C 12/28/22 07:01 Pulse 64 12/28/22 07:01 Respiratory Rate 16 12/28/22 07:01 Blood Pressure 99/66 L 12/28/22 07:01 Pulse Oximetry 100 12/28/22 07:01 Temperature 36.5 C 12/28/22 07:01 Temperature Source Skin 12/28/22 07:01 Pulse 64 12/28/22 07:01 Respiratory Rate 16 12/28/22 07:01 Respiratory Effort Normal, Non-Labored 12/28/22 07:14 Blood Pressure 99/66 L 12/28/22 07:01 Blood Pressure Position Sitting 12/28/22 07:01 Pulse Oximetry 100 12/28/22 07:01 Oxygen Delivery Method Room Air 12/28/22 07:01 Oxygen Flow Rate 0 12/28/22 07:01 Pain Level 5 12/28/22 07:01
[2022-12-28] MEDS: Normal Saline 1,000 ML 1000 ML IV (07:54)
[2022-12-28 07:55] LABS: Abs Immature Grans 0.02 10^3/uL (0.0-0.06); HCT 42.8 % (36.0-46.0); HGB 14.5 g/dL (11.2-15.7); MCH 30.9 pg (27.0-33.0); MCHC 33.9 % (32.0-36.0); MCV 91 fL (80-95); MPV 10.9 fL (8.0-11.0); RDW 13.8 % (11.7-14.6); RDW-SD 46.8 fL; WBC 5.07 10^3/uL (4.4-10.8)
[2022-12-28] MEDS: Mylanta Suspension 30 ML CUP 20 ML PO (08:01)
[2022-12-28] MEDS: Loperamide 2 MG CAP 4 MG PO (08:01)
[2022-12-28 08:07] LABS: Prothrombin Time 9.9 sec (9.3-11.0)
[2022-12-28 08:11] LABS: ALT 71 U/L (14-59); AST 39 U/L (15-37); Albumin 3.5 g/dL (3.4-5.0); Alkaline Phosphatase 84 U/L (46-116); BUN 9 mg/dL (7-18); Bilirubin, Total 0.2 mg/dL (0.2-1.0); CREATININE 0.8 mg/dL (0.55-1.02); Calcium 7.1 mg/dL (8.5-10.1); Chloride 107 mmol/L (98-107); Glucose 127 mg/dL (74-106); Lipase 30 U/L (16-77); Magnesium 2.1 mg/dL (1.8-2.4); Potassium 3.3 mmol/L (3.5-5.1); Sodium 139 mmol/L (136-145); Total Protein 6.9 g/dL (6.4-8.2)
[2022-12-28] MEDS: CALCIUM GLUCONATE in NaCl 1 GM/50 ML BAG IVPB (08:23)
[2022-12-28] MEDS: Ondansetron 4 MG/2 ML VIAL IVP (08:23)
[2022-12-28 08:31] LABS: Absolute Lymphocyte Count 1.98 10^3/uL (1.2-3.4); Absolute Neutrophil Count 2.28 10^3/uL (1.2-6.7); Atypical Lymphocytes % 6; Platelet Count 184 10^3/uL (130-400)
[2022-12-28 08:32] LABS: Absolute Monocyte Count 0.51 10^3/uL (0.1-0.8); Diff Comment Manual Differential; RBC Morphology Normal
[2022-12-28] MEDS: Omnipaque 350 MG/ML 500 ML BTL-Imaging package IJ (08:53)
--- NOTE | 2022-12-28 09:10 | DI.CT_ITS ---
Exam(s) CT ABDOMEN PELVIS W EXAM: CT ABDOMEN PELVIS W CLINICAL HISTORY: abdominal pain, acute, nonlocalized TECHNIQUE: Imaging Protocol: Axial computed tomography images with coronal and sagittal reformatted images were created and reviewed CONTRAST MATERIAL: Intravenous: Omnipaque 350 Contrast volume:100 mL Oral: No COMPARISON: No exams were available for comparison FINDINGS: ABDOMEN: Lung Bases: Normal where visualized. Liver: Normal density. No measurable mass. Portal, Superior Mesenteric, and Splenic Veins: Unremarkable. Gallbladder and Biliary Tract: Status post cholecystectomy. No biliary ductal dilatation. Pancreas: Normal density, no abnormal calcifications or inflammatory process. Spleen: Normal. Adrenals: No masses seen. Kidneys: Normal size, contour and axis. No radiodense stones or obstructive uropathy. No masses seen. Abdominal Aorta: Abdominal portion non-dilated. Mild atherosclerosis. Bowel: There is no evidence of bowel obstruction. There is mild wall thickening in the proximal jeju num. Mild infiltration of the mesentery in this region. Mildly enlarged lymph nodes are seen in the mesentery. This all may reflect a mild enteritis. No evidence of appendicitis. Peritoneal Cavity: No ascites, collection or mesenteric inflammatory response. No free air. Lymph Nodes: Please see the above section under bowel. Bones: Within normal limits for the patient's age. Soft Tissues: There is a fat containing right inguinal hernia. PELVIS: Bladder: The urinary bladder is not well distended limiting evaluation. No gross abnormalities ident ified. Reproductive Organs: Unremarkable as visualized. Lymph Nodes: Within normal limits. Bones: Within normal limits for the patient's age. IMPRESSION: 1. Mild bowel wall thickening seen in the proximal jejunum with mild infiltration of the surrounding fat suggestive of a mild inflammatory infectious enteritis. 2. Findings were discussed with the emergency department at 10:56 a.m. on 12/28/2022. RADIATION DOSE DELIVERED: 1,198.15mGy.cm Total DLP DATA REPOSITORY: All CT scans at this facility are submitted to the National Radiology Data Registry (NRDR) Dose Index Registry (DIR) with the [employer] (ACR). RADIATION OPTIMIZATION: All CT scans at this facility use at least one of these dose optimization te chniques: automated exposure control; mA and/or kV adjustment per patient size (includes targeted exa ms where dose is matched to clinical indication); or iterative reconstruction.
[2022-12-28 09:32] LABS: C Diff PCR Negative (Negative)
--- NOTE | 2022-12-28 11:07 | DI.VRAD_ITS ---
PROCEDURE INFORMATION: Exam: CT Abdomen And Pelvis With Contrast Exam date and time: 12/28/2022 8:59 AM Age: 52 years old Clinical indication: Other: Non localized; Patient HX: Abdominal pain, acute, nonlocalized TECHNIQUE: Imaging protocol: Computed tomography of the abdomen and pelvis with contrast. COMPARISON: US PELVIS TRANSVAGINAL 03/04/2021 2:32 PM FINDINGS: Liver: 22.8 cm longitudinal dimension of elongated right hepatic lobe. Otherwise unremarkable liver. Gallbladder and bile ducts: The gallbladder is surgically absent. No biliary dilatation. Pancreas: Normal. No ductal dilation. Spleen: Normal. No splenomegaly. Adrenal glands: Normal. No mass. Kidneys and ureters: Normal. No hydronephrosis. Stomach and bowel: Prominent amount of fluid in nondilated small bowel and colon, without bowel wall thickening. No other gross bowel abnormalities. No bowel obstruction. Appendix: Normal appendix. Intraperitoneal space: There is mild hazy infiltration of the central mesentery. There is an associated thin pseudo capsule encasing the hazy mesentery. A cluster of subcentimeter mesenteric lymph nodes is seen in this region. Mesenteric vessels and nodes have a halo of spared fat around them. Vasculature: Unremarkable. No abdominal aortic aneurysm. Lymph nodes: See Intraperitoneal space finding. No retroperitoneal or pelvic lymphadenopathy. Urinary bladder: Urinary bladder collapsed, limiting evaluation. Reproductive: Unremarkable as visualized. Bones/joints: Unremarkable. No acute fracture. Soft tissues: Mild diastasis of the rectus abdominus muscles. IMPRESSION: 1. Hazy infiltration of the central mesentery. This is a nonspecific finding which can be seen in the setting of mesenteric panniculitis or early or treated lymphoma. Consider CT follow-up in 3 months to assess for interval changes. 2. Prominent amount of fluid in nondilated small bowel and colon, without bowel wall thickening. This could indicate infectious/inflammatory enteritis/colitis. 3. Elongation of the right hepatic lobe, which may be due to a normal variant Veronika's lobe type configuration. Correlate with LFTs. Dictated and Authenticated by: Cinthia Solitario MD. Ordering:DYLAN Zheng MD
[2022-12-29 00:05] LABS: Campylobacter PCR Negative (Negative); Salmonella PCR Negative (Negative); Shiga Toxin PCR Negative (Negative); Shigella/Enteroinvasive Ecoli Negative (Negative)
== END 2022-12-28 11:50 | disposition home or self-care (01) ==
PROVIDERS: Emergency Provider Student in an Organized Health Care Education/Training Program; PCP Nurse Practitioner Family
DX: A08.4 Viral intestinal infection, unspecified (principal); R19.7 Diarrhea, unspecified; R10.9 Unspecified abdominal pain
CPT/HCPCS: 36415; 80053; 83690; 87329; 87493; 87505; 96361; 96365; 96375; 99285; 74177; 82270; 83735; 85025; 85610; 87177; 99284; J2405

== ENCOUNTER 2023-01-01 01:23 | Outpatient (CLI) | payer OTHER, SELFPAY ==
[2023-01-01 08:57] LABS: Calculated LDL 80 mg/dL (<100); Cholesterol 130 mg/dL (<200); HDL Cholesterol 34 mg/dL (40-60); TSH (W/Ref FT4) 4.82 uIU/mL (0.36-3.74); Triglyceride 84 mg/dL (<150)
[2023-01-01 09:16] LABS: FREE T4 1.13 ng/dL (0.76-1.46)
[2023-01-01 13:49] LABS: Lab Add On Test DONE
[2023-01-01 13:57] LABS: Magnesium 1.7 mg/dL (1.8-2.4); Potassium 4.1 mmol/L (3.5-5.1)
== END 2023-01-01 01:24 | disposition home or self-care (01) ==
LOC: LBO 01:23
PROVIDERS: Student in an Organized Health Care Education/Training Program; PCP Nurse Practitioner Family; Visit Provider Nurse Practitioner Family
DX: E78.5 Hyperlipidemia, unspecified (principal); E03.9 Hypothyroidism, unspecified; E87.6 Hypokalemia; R79.89 Other specified abnormal findings of blood chemistry
CPT/HCPCS: 36415; 80061; 83735; 84132; 84439; 84443; 84481

== ENCOUNTER 2023-03-23 02:38 | Outpatient (CLI) | payer OTHER, SELFPAY ==
[2023-03-23 09:14] LABS: CREATININE 0.8 mg/dL (0.55-1.02); Estimated GFR 88.05 (mL/min/1.73m2)
== END 2023-03-23 02:39 | disposition home or self-care (01) ==
LOC: LBO 02:38
PROVIDERS: PCP Nurse Practitioner Family; Visit Provider Nurse Practitioner Family
DX: E11.9 Type 2 diabetes mellitus without complications (principal); E03.9 Hypothyroidism, unspecified; Z01.812 Encounter for preprocedural laboratory examination
CPT/HCPCS: 36415; 82565

== ENCOUNTER 2023-04-30 02:25 | Outpatient (CLI) | payer OTHER, SELFPAY ==
[2023-04-30 11:07] LABS: TSH (W/Ref FT4) 0.32 uIU/mL (0.36-3.74)
[2023-04-30 11:38] LABS: FREE T4 1.22 ng/dL (0.76-1.46)
== END 2023-04-30 02:26 | disposition home or self-care (01) ==
LOC: LBO 02:25
PROVIDERS: PCP Nurse Practitioner Family; Referring Provider Nurse Practitioner Family; Visit Provider Nurse Practitioner Family
DX: E03.9 Hypothyroidism, unspecified (principal)
CPT/HCPCS: 36415; 84439; 84443

== ENCOUNTER → 2023-07-09 00:44 | Outpatient (CLI) | payer OTHER, SELFPAY ==
--- NOTE | 2023-07-09 07:30 | DI.CT_ITS ---
Exam(s) CT ABDOMEN PELVIS W EXAM: CT ABDOMEN PELVIS W CLINICAL HISTORY: 3 mo f/u bowel wall thickening,mesenteric lymphadenopathy,k63.9,r59.0. TECHNIQUE: Imaging Protocol: Axial computed tomography images with coronal and sagittal reformatted images were created and reviewed CONTRAST MATERIAL: Intravenous: Omnipaque 350 Contrast volume:100 ml Oral: yes / COMPARISON: CT CT ABDOMEN PELVIS W from 12/28/2022 FINDINGS: ABDOMEN and PELVIS: Lung Bases: No acute findings. Liver: Mildly enlarged. Mild fatty infiltration. No measurable mass. Gallbladder and biliary tract: Status post cholecystectomy. No radiodense calculus or dilation. Pancreas: Normal density. No abnormal calcifications or inflammatory process. No evidence of mass. Spleen: Normal. Kidneys: Normal size, contour and axis. No radiodense stones. No obstructive uropathy. No suspicious masses seen. Adrenal glands: No masses seen. Vasculature: Abdominal aorta non-dilated. Mild atherosclerotic changes. Soft tissues: Small fat containing bilateral inguinal hernias. Bladder: No gross wall thickening. No calculi.No focal mass. Bowel: No obstruction. No bowel wall thickening. Appendix normal. Peritoneal cavity: No ascites. No focal collection or mesenteric inflammatory response. Bones: Unremarkable for age. Reproductive organs: Within normal limits. Lymph nodes: Previously noted mildly enlarged mesenteric lymph nodes have decreased in size. Mesente alanna haziness no longer present. IMPRESSION:: Interval improvement in previously noted bowel dilatation, wall thickening as well as e nlarged mesenteric lymph nodes. RADIATION DOSE DELIVERED: Total DLP DATA REPOSITORY: All CT scans at this facility are submitted to the National Radiology Data Registry (NRDR) Dose Index Registry (DIR) with the [employer] (ACR). RADIATION OPTIMIZATION: All CT scans at this facility use at least one of these dose optimization te chniques: automated exposure control; mA and/or kV adjustment per patient size (includes targeted exa ms where dose is matched to clinical indication); or iterative reconstruction.
[2023-07-09] MEDS: Barium Sulfate 2% W/V-Creamy Vanilla Smoothie 450 ML BTL 900 ML PO (08:51)
[2023-07-09 09:03] LABS: Anion Gap 9.5 mmol/L (3-11); BUN 16 mg/dL (7-18); CO2 28.5 mmol/L (21.0-32.0); CREATININE 0.8 mg/dL (0.55-1.02); Calcium 9.5 mg/dL (8.5-10.1); Chloride 102 mmol/L (98-107); Estimated GFR 88.05 (mL/min/1.73m2); Glucose 154 mg/dL (74-106); Potassium 3.9 mmol/L (3.5-5.1); Sodium 140 mmol/L (136-145)
[2023-07-09] MEDS: Omnipaque 350 MG/ML 100 ML BTL IJ (09:58)
[2023-07-09] MEDS: Normal Saline - Diluent 50 ML VIAL IJ (09:59)
== END ==
PROVIDERS: Student in an Organized Health Care Education/Training Program; PCP Nurse Practitioner Family; Visit Provider Nurse Practitioner Family
DX: E11.65 Type 2 diabetes mellitus with hyperglycemia (principal); R93.89 Abnormal findings on diagnostic imaging of other specified body structures; K63.9 Disease of intestine, unspecified; R59.0 Localized enlarged lymph nodes
CPT/HCPCS: 80048; 74177; J3490

== ENCOUNTER 2023-07-23 16:40 | Outpatient (REF) | payer OTHER, SELFPAY ==
[2023-07-23 15:33] LABS: Influenza A PCR Negative (Negative); Influenza B PCR Negative (Negative); RSV PCR Negative (Negative)
[2023-07-23 15:50] LABS: COVID-19 PCR Positive (Negative); Source Nasopharynx
== END 2023-07-23 16:41 | disposition home or self-care (01) ==
LOC: LBN 16:40
PROVIDERS: PCP Student in an Organized Health Care Education/Training Program; Visit Provider Student in an Organized Health Care Education/Training Program
DX: R05.8 Other specified cough (principal); R50.9 Fever, unspecified; R09.81 Nasal congestion; R09.89 Other specified symptoms and signs involving the circulatory and respiratory systems
CPT/HCPCS: 87637

== ENCOUNTER 2023-08-25 04:38 | Outpatient (CLI) | payer OTHER, SELFPAY ==
[2023-08-25 15:18] LABS: TSH (W/Ref FT4) 2.02 uIU/mL (0.36-3.74)
== END 2023-08-25 04:39 | disposition home or self-care (01) ==
LOC: LBO 04:38
PROVIDERS: PCP Student in an Organized Health Care Education/Training Program; Visit Provider Student in an Organized Health Care Education/Training Program
DX: E03.9 Hypothyroidism, unspecified (principal); F41.8 Other specified anxiety disorders; F32.89 Other specified depressive episodes
CPT/HCPCS: 36415; 84443

== ENCOUNTER 2023-11-29 18:17 | Outpatient (CLI) | payer OTHER, SELFPAY ==
[2023-11-29 14:19] LABS: TSH (W/Ref FT4) 0.07 uIU/mL (0.36-3.74)
== END 2023-11-29 18:18 | disposition home or self-care (01) ==
LOC: LBO 18:22
PROVIDERS: PCP Student in an Organized Health Care Education/Training Program; Visit Provider Student in an Organized Health Care Education/Training Program
DX: E03.9 Hypothyroidism, unspecified (principal); M54.59 Other low back pain; G57.02 Lesion of sciatic nerve, left lower limb; G56.03 Carpal tunnel syndrome, bilateral upper limbs
CPT/HCPCS: 36415; 84439; 84443

== ENCOUNTER 2023-12-17 02:39 | Outpatient (CLI) | payer OTHER, SELFPAY ==
[2023-12-17 09:45] LABS: TSH (W/Ref FT4) 0.12 uIU/mL (0.36-3.74)
[2023-12-17 10:01] LABS: FREE T4 1.42 ng/dL (0.76-1.46)
== END 2023-12-17 02:40 | disposition home or self-care (01) ==
LOC: LBO 02:40
PROVIDERS: PCP Student in an Organized Health Care Education/Training Program; Visit Provider Student in an Organized Health Care Education/Training Program
DX: R79.89 Other specified abnormal findings of blood chemistry (principal)
CPT/HCPCS: 36415; 84439; 84443

== ENCOUNTER 2024-01-03 08:00 | Day surgery (SDC) | payer OTHER, SELFPAY ==
[2024-01-03] VITALS (13 sets, daily range): BP systolic 96–109; BP diastolic 41–72; PULSE 71–101; RESP 16–23; TEMP 36.2–36.5; O2SAT 92–98; BMI 35.2
--- NOTE | 2024-01-03 08:34 | W.PM.HP.N ---
Date of service: 01/03/24 Time of Service: 10:08 Assessment and Plan Assessment and plan (1) Urinary incontinence: Status: Acute Assessment and plan: We will place a mid urethral sling for the stress component of her urinary incontinence. History of Present Illness History of Present Illness Chief Complaint: Stress urinary incontinence Narrative: This is a 53-year-old woman who has a history of mixed urinary incontinence. Her leakage has progressed over time and she is now having incontinent episodes even with minimal activity. She has not benefited from pelvic floor physical therapy. She presents now for a mid urethral sling for the stress incontinence component. She has had 3 prior vaginal deliveries. She has not had a hysterectomy. Review of Systems Narrative: No fevers or chills Diabetic retinopathy. No dysphasia Diabetes. Hypothyroidism. No shortness of breath, cough or hemoptysis No chest pain or palpitations Hx GERD. No hepatitis, ulcers, jaundice No seizures, strokes or peripheral neuropathy No bleeding disorders or anemia Right sided sciatica. No gout PFSH All Active Problems Vision disorder (Acute) Anxiety and depression (Chronic) Diabetic retinopathy (Acute 02/22/23) Right - Mild Bowel wall thickening (Acute) Mesenteric lymphadenopathy (Acute) Piriformis syndrome of left side (Acute) Urinary incontinence (Acute) Low back pain (Acute) Type 2 diabetes mellitus (Acute) Osteoarthritis of cervical spine (Chronic 04/02/16) Hypothyroidism (Chronic 11/24/12) TSH goal = 1.5-2.0 Herpes simplex (Chronic) Fatigue (Chronic) Anxiety (Chronic 11/24/12) Tobacco use disorder (Chronic) Bilateral carpal tunnel syndrome (Chronic) 02/2019 Neuro consult w/ NCS showing mild; pt declined referral to Ortho (also had NCS's in 2014 & 2008) Hyperlipidemia (Chronic 11/24/12) 07/2021 labwork: 10-year ASCVD risk = ~3.7% --> statin not indicated at this time Knee pain (Chronic) Bilateral Medical History Contact with and (suspected) exposure to other bacterial communicable diseases C. diff exposure (2' son's gf)(appreciated nurs info) .. Explained no testing until actual watery diarrhea (ordered for home collection PRN) Postmenopausal bleeding Lateral epicondylitis of left elbow (08/13/16) Menorrhagia, premenopausal (06/25/15) Encounter for insertion of mirena IUD (08/29/15) placed for menorrhagia 08/06/15 Plantar fasciitis Chronic pain Surgical History Status post cholecystectomy (~2009) Status post tubal ligation (~1998) Family History (Updated 12/03/23 @ 12:04 by Eliza Walden RN) Mother Diabetes Hyperlipidemia Father Essential hypertension Hyperlipidemia Grandmother Diabetes Uncle Cancer great uncles Cancer.HE Maternal Cousin Depression cousin Social History Smoking/Tobacco Use Status: Current every day Tobacco Type: cigarettes Tobacco: How many years used: 33 Smoking risk assessment performed?: Yes Alcohol Intake: current Alcohol Intake frequency: holidays/special occasions only Alcohol type: wine Drug use: Occasionally Substance use type: marijuana Details: edible Adopted: No Caregiver/Support person: No Foster care: No Household members: spouse, children and other Details: 2 adopted children Housing: house Number of Children: 6 number of grandchildren: 4 Communication Needs: None Education Level: high school Do you need help understanding health information?: Rarely current occupation: Cook Pets and animals: Yes Pets and animals: dog(s) Sexually active: No Do you think of yourself as: straight/heterosexual Current gender identity: female What is your relationship status?: How often do you talk on the phone with friends or family?: once per week How often do you get together with friends or relatives?: never How often do you attend episcopalian or zoroastrianism services?: decline to answer Do you belong to any clubs or organized social groups?: no Panel score (0-1 are the most socially isolated patients): 1 What type of physical activity do you participate in: none Frequency: 5-6 times per week Tabitha/Baptist: None Special tabitha needs: No Seatbelt use: always Helmet use: Yes Helmet use: sometimes Drive intox or ride w/intox parts driver: No Water heater temp set <120 deg: Yes Working smoke detector in home: Yes Fire extinguisher in home: Yes Carbon monox detector in home: Yes Firearms in home: Yes Firearms unloaded and locked: Yes Do you feel safe at home: Yes Do you feel safe in your relationship?: Yes Meds Allergies and Home Medications Allergies Allergy/AdvReac Type Severity Reaction Status Date / Time empagliflozin Allergy Mild Itching Verified 01/03/24 08:33 oxycodone AdvReac Intermediate vomitting Verified 01/03/24 08:33 omeprazole AdvReac Mild GI upset Verified 01/03/24 08:33 Home Medications Medication Instructions Recorded Confirmed Type blood-glucose meter #1 ea 03/21/20 12/03/23 Rx lancets #100 ea 10/27/21 12/03/23 Rx acetaminophen 500 mg tablet 500 - 1,000 mg (1 - 2 x 500 mg) PO 10/16/22 01/03/24 Rx TID PRN pain #270 tab-caps gabapentin 300 mg capsule 300 mg PO QHS #90 caps 08/27/23 01/03/24 Rx levothyroxine 175 mcg tablet See Rx Instructions .Route 08/27/23 01/03/24 Rx .COMPLEX #90 tabs valacyclovir 1 gram tablet 2,000 mg (2 x 1 gram) PO BID 10/09/23 01/03/24 Rx recurrent orolabial HSV #4 tab-caps blood sugar diagnostic (Blood #100 ea 11/26/23 11/26/23 Rx Glucose Test strips) duloxetine 40 mg capsule,delayed 40 mg PO DAILY #90 caps 11/26/23 01/03/24 Rx release Lactobacillus 1 cap PO DAILY 12/03/23 01/03/24 History acidophilus-Bifidobac.animalis 2.5 billion cell capsule (Daily Probiotic) cinnamon bark 500 mg capsule 2,000 mg PO DAILY 12/03/23 01/03/24 History (Cinnamon) glucose urine test-glucose ox #100 ea 12/03/23 12/03/23 Rx metformin 500 mg tablet,extended See Rx Instructions .Route 12/03/23 01/03/24 Rx release 24 hr .COMPLEX #360 tabs pantoprazole 40 mg tablet,delayed See Rx Instructions .Route 12/03/23 01/03/24 Rx release .COMPLEX #90 tabs atorvastatin 10 mg tablet See Rx Instructions .Route 12/16/23 01/03/24 Rx .COMPLEX #90 tabs celecoxib 100 mg capsule See Rx Instructions .Route 12/17/23 01/03/24 Rx .COMPLEX #60 caps Exam Const General: cooperative Neck Neck: supple Resp Effort & Inspection: normal respiratory effort Auscultation: clear to auscultation bilaterally Cardio Rate: regular rate Rhythm: regular rhythm GI Palpation: soft and no masses Neuro General: patient alert, patient awake and patient oriented x3 Time Spent Time spent with Patient: <40 minutes Time was spent: other
[2024-01-03] MEDS: Lactated Ringers 1,000 ML 80 ML IV (08:41)
--- NOTE | 2024-01-03 10:31 | W.ANESPRE ---
General Info Date of Service Date Performed: 01/03/24 Height: 5 ft 3 in Weight: 90.265 kg Body Mass Index (BMI): 35.2 Surgical Procedure: Operation Date: 01/03/24 09:40 Proposed Procedure Side Surgeon p Mid Urethral Sling Jin Suarez MD Meds Allergies and Home Medications Allergies Allergy/AdvReac Type Severity Reaction Status Date / Time empagliflozin Allergy Mild Itching Verified 01/03/24 08:33 oxycodone AdvReac Intermediate vomitting Verified 01/03/24 08:33 omeprazole AdvReac Mild GI upset Verified 01/03/24 08:33 Home Medication Medication Instructions Recorded blood-glucose meter #1 ea 03/21/20 lancets #100 ea 10/27/21 acetaminophen 500 mg tablet 500 - 1,000 mg (1 - 2 x 500 mg) PO 10/16/22 TID PRN pain #270 tab-caps gabapentin 300 mg capsule 300 mg PO QHS #90 caps 08/27/23 levothyroxine 175 mcg tablet See Rx Instructions .Route 08/27/23 .COMPLEX #90 tabs valacyclovir 1 gram tablet 2,000 mg (2 x 1 gram) PO BID 10/09/23 recurrent orolabial HSV #4 tab-caps blood sugar diagnostic (Blood #100 ea 11/26/23 Glucose Test strips) duloxetine 40 mg capsule,delayed 40 mg PO DAILY #90 caps 11/26/23 release Lactobacillus 1 cap PO DAILY 12/03/23 acidophilus-Bifidobac.animalis 2.5 billion cell capsule (Daily Probiotic) cinnamon bark 500 mg capsule 2,000 mg PO DAILY 12/03/23 (Cinnamon) glucose urine test-glucose ox #100 ea 12/03/23 metformin 500 mg tablet,extended See Rx Instructions .Route 12/03/23 release 24 hr .COMPLEX #360 tabs pantoprazole 40 mg tablet,delayed See Rx Instructions .Route 12/03/23 release .COMPLEX #90 tabs atorvastatin 10 mg tablet See Rx Instructions .Route 12/16/23 .COMPLEX #90 tabs celecoxib 100 mg capsule See Rx Instructions .Route 12/17/23 .COMPLEX #60 caps Current Visit Medications: Current Medications Generic Name Dose Route Start Last Admin Trade Name Freq PRN Reason Stop Dose Admin Ringer's Solution 1,000 mls @ 80 mls/hr 01/03/24 06:00 01/03/24 08:41 IV 01/03/24 23:59 80 mls/hr INFUSION JAIME Administration Cefazolin Sodium/Dextrose 2 gm in 50 mls @ 100 mls/hr 01/03/24 06:00 Ancef Duplex IVPB 01/03/24 23:59 PREOP JAIME IV Miscellaneous Supplies 1 each 01/03/24 06:00 Iv Access IV 01/03/24 23:59 DIRECTED JAIME Sodium Chloride 0 ml 01/03/24 06:00 Normal Saline Flush 10 Ml Syr IV 01/03/24 23:59 PRN PRN Sodium Chloride 0 ml 01/03/24 06:00 Normal Saline 10 Ml Vial IJ 01/03/24 23:59 DIRECTED PRN Sterile Water 0 ml 01/03/24 06:00 Water,Injection,Sterile 10 Ml Vial IJ 01/03/24 23:59 DIRECTED PRN PFSH Active Problems Active Problems: Problem Status Onset Code Vision disorder H53.9 Anxiety and depression F41.9, F32.A Diabetic retinopathy 02/22/23 E11.319 Bowel wall thickening K63.9 Mesenteric lymphadenopathy R59.0 Piriformis syndrome of left side G57.02 Urinary incontinence R32 Low back pain M54.5 Type 2 diabetes mellitus E11.9 Osteoarthritis of cervical spine 04/02/16 M47.812 Hypothyroidism 11/24/12 E03.9 Herpes simplex B00.9 Gastroesophageal reflux disease K21.9 Fatigue R53.83 Anxiety 11/24/12 F41.9 Tobacco use disorder F17.200 Bilateral carpal tunnel syndrome G56.03 Hyperlipidemia 11/24/12 E78.5 Knee pain M25.569 Medical History Medical History Contact with and (suspected) exposure to other bacterial communicable diseases C. diff exposure (2' son's gf)(appreciated nurs info) .. Explained no testing until actual watery diarrhea (ordered for home collection PRN) Postmenopausal bleeding Lateral epicondylitis of left elbow (08/13/16) Menorrhagia, premenopausal (06/25/15) Encounter for insertion of mirena IUD (08/29/15) placed for menorrhagia 08/06/15 Plantar fasciitis Chronic pain Medical History Comments:: Pt. states he grandmother coded during surgery Surgical History Surgical History Status post cholecystectomy (~2009) Status post tubal ligation (~1998) Tobacco Smoking/Tobacco Use Status: Current every day Tobacco Type: cigarettes Alcohol Alcohol Intake: current Alcohol intake frequency: holidays/special occasions only Alcohol type: wine Substance Use Substance use: Occasionally Substance use type: marijuana Details: edible Vital Signs and Lab Results Vital Signs Most Recent Vital Signs in EMR: Most Recent Vital Signs Temp Pulse Resp BP Pulse Ox 36.2 C L 101 H 20 108/72 98 01/03/24 08:36 01/03/24 08:36 01/03/24 08:36 01/03/24 08:36 01/03/24 08:36 Point of Care Results Point of Care Results: Finger Stick Blood Glucose 155 01/03/24 08:21 Lab Results Blood Type / Crossmatch: No Data to Display Complete Blood Count: No Data to Display Complete Metabolic Panel: No Data to Display Liver Function Panel: No Data to Display Coagulation Panel: No Data to Display Cardiac Panel: No Data to Display Arterial Blood Gas: No Data to Display Venous Blood Gas: No Data to Display Pancreas Panel: No Data to Display Thyroid Panel: Thyroid Stimulating Hormone (TSH) 0.12 uIU/mL (0.36-3.74) L 12/17/23 08:40 Infectious Disease: No Data to Display Blood Cultures: No Data to Display Toxicology Panel: No Data to Display Panel: No Data to Display Anesthesia Assessment and Plan Anesthesia History Personal History: No History of Anesthesia Complications Family History: No Family History of Anesthesia Complications and Other Exercise Tolerance Exercise Tolerance: Metabolic Equivalents>4 Pertinent Negatives Pertinent Negatives: No Symptoms of GERD Cardiac & Pulmonary Exam Cardiac Exam: Normal S1/S2 Heart Sounds Pulmonary Exam: Clear Bilateral Breath Sounds Implantable Cardiac Device Does patient have a Pacemaker or an ICD?: No Airway Exam Known Difficult Airway: No Mallampati Class: 2 Mouth Opening: Normal (> 3cm) Thyromental Distance: Less than 3 cm Neck Range of Motion: Full ROM Neck Circumference: Thick Teeth Condition: Normal Dentition ASA Classification ASA Score: ASA 2 Emergency Case?: No NPO Status NPO Status: NPO Clears >2 hours, Solids >8 hours Status Status: Not Relevant due to Medical History (tubes tied) Anesthesia Plan Resuscitation Status: Full Code Anesthesia Technique: General Anesthesia Airway Planned: LMA Monitors Used: Standard Monitors
--- NOTE | 2024-01-03 11:00 | W.PM.DSUDISC ---
Date of service: 01/03/24 Time of Service: 11:43 Discharge Plan Disposition Patient Disposition: Home Condition: Stable Discharge Details Reason For Visit: midurethral sling Attending Provider: Jin Suarez Primary Care Provider: Aury Rainey Home Meds and New Rx's Prescriptions: New ketorolac 10 mg tablet 10 mg PO Q8H PRN (Reason: pain) Qty: 14 0RF Rx Instructions: maximum total duration of 5 days from all oral, intranasal, or parenteral formulations may take tylenol but not NSAIDs while using this medication No Action gabapentin 300 mg capsule 300 mg PO QHS Qty: 90 1RF Rx Instructions: Trial higher dose @ bedtime levothyroxine 175 mcg tablet See Rx Instructions .ROUTE .COMPLEX Qty: 90 1RF Dose Instruction: TAKE ONE TABLET BY MOUTH EVERY MORNING ON EMPTY STOMACH; AT LEAST 30-60 MIN BEFORE FOOD Rx Instructions: TAKE ONE TABLET BY MOUTH EVERY MORNING ON EMPTY STOMACH; AT LEAST 30-60 MIN BEFORE FOOD (DME) Blood Glucose Test Strip See Rx Instructions .ROUTE .MEDSUPPLY Qty: 100 3RF Rx Instructions: As directed to check blood glucose daily. No insulin. Dispense covered brand. Daily Probiotic 2.5 billion cell capsule 1 cap PO DAILY cinnamon bark [Cinnamon] 500 mg capsule 2,000 mg PO DAILY Hold Instructions: Pt Stopped/Never Started metformin 500 mg tablet extended release 24 hr See Rx Instructions .ROUTE .COMPLEX Qty: 360 3RF Dose Instruction: TAKE 4 TABLETS BY MOUTH EVERY DAY WITH EVENING MEAL Rx Instructions: TAKE 4 TABLETS BY MOUTH EVERY DAY WITH EVENING MEAL pantoprazole 40 mg tablet,delayed release (DR/EC) See Rx Instructions .ROUTE .COMPLEX Qty: 90 3RF Dose Instruction: TAKE ONE TABLET BY MOUTH EVERY MORNING AT LEAST 30 MINUTES BEFORE FIRST MEAL Rx Instructions: TAKE ONE TABLET BY MOUTH EVERY MORNING AT LEAST 30 MINUTES BEFORE FIRST MEAL (DME) glucose urine test-glucose ox Strip See Rx Instructions .Route Qty: 100 1RF Rx Instructions: Use daily and log colors/levels (DME) blood-glucose meter Misc See Rx Instructions .ROUTE .MEDSUPPLY Qty: 1 0RF Rx Instructions: As directed to check blood glucose daily. No insulin. Dispense covered brand. acetaminophen 500 mg tablet 500 - 1,000 mg PO TID PRN (Reason: pain) Qty: 270 3RF (DME) lancets Misc See Rx Instructions .ROUTE .MEDSUPPLY Qty: 100 3RF Rx Instructions: As directed to check blood glucose daily. No insulin. Dispense covered brand. valacyclovir 1 gram tablet 2,000 mg PO BID Qty: 4 2RF Rx Instructions: Take 2 g BID for 1 day for recurrent orolabial herpes duloxetine 40 mg capsule,delayed release(DR/EC) 40 mg PO DAILY Qty: 90 0RF atorvastatin 10 mg tablet See Rx Instructions .ROUTE .COMPLEX Qty: 90 3RF Dose Instruction: TAKE ONE TABLET BY MOUTH EVERY DAY Rx Instructions: TAKE ONE TABLET BY MOUTH EVERY DAY celecoxib 100 mg capsule See Rx Instructions .ROUTE .COMPLEX Qty: 60 1RF Dose Instruction: TAKE ONE CAPSULE BY MOUTH TWICE A DAY Rx Instructions: TAKE ONE CAPSULE BY MOUTH TWICE A DAY, WITH FOOD Discharge Instructions Additional Instructions: no lifting over 20 pounds until followup visit no intercourse for 6 weeks followup visit @ 2 weeks Activity:: see additional instructions Shower/Bathe:: 24 hours Diet:: As Tolerated Discharge Orders Discharge Orders: Discharge Order (Routine); Ordered 01/03/24 Ordered By: Jin Suarez DS: Diagnosis Discharge Diagnosis (1) Urinary incontinence: Status: Acute
[2024-01-03] MEDS: ceFAZolin 2 GM/50 ML BAG IVPB (11:10)
[2024-01-03] MEDS: Lidocaine 2% Jelly 11 ML SYR (11:21)
[2024-01-03] MEDS: Lidocaine 1% Multi-Dose W/EPI 1/100,000 50 ML VIAL (11:31)
--- NOTE | 2024-01-03 11:46 | W.PM.OP ---
Date of service: 01/03/24 Time of Service: 11:46 Operative Note Operative Note DATE OF PROCEDURE: 01/03/24 PRE-OP DIAGNOSIS: Stress urinary incontinence PROCEDURE: Placement of midurethral sling (Altis) SURGEON: Jin Suarez ANESTHESIA TYPE: Local By Surgeon and General LMA/ETT Refer to Anesthesia Record ESTIMATED BLOOD LOSS: 5 PATHOLOGY: none sent COMPLICATIONS: None Patient was transported to: PACU Patient's condition: stable Implants: Altis midurethral sling Indications: This is a 53-year-old woman who has had 3 previous vaginal deliveries. She has mixed urinary incontinence and is especially bothered by the leakage that occurs with movement and Valsalva maneuver. She presents for placement of a mid urethral sling. Findings: Normal anatomy Procedure Description: The patient was brought to the operating room on 01/03/2024. She was given a dose of preoperative IV antibiotics. After successful induction of general anesthesia, she was placed in the dorsal lithotomy position. Her genitalia was prepped with Betadine and draped. 2% Xylocaine jelly was instilled into the urethra. A 16 Tamazight Mclaughlin catheter was then passed through the urethra into the bladder. The catheter balloon was inflated with 10 cc of sterile water. The catheter was hooked to gravity drainage. We identified the mid urethral area injected a combination of 1% lidocaine with epinephrine and saline submucosally for hydrodistention. We then made an anterior vaginal wall incision over the mid urethral location. A plane was developed on either side of the urethra out to the pelvic sidewall. The Altis mid urethral sling was then prepared for instillation. The curved needles were passed into the sling as bolsters. We first positioned the left bolster by passing the needle up through the obturator membrane. The needle was then removed leaving the sling and bolster in place. The same maneuver was performed on the right side. Once the sling was placed, we plan to usp the sling. We ensured that the sling was laying flat against the urethra. I then passed a Metzenbaum scissors between the sling and the urethra itself. We tensioned the sling by using the adjustable suture tensioner and cut the suture tensioner once we were happy with the positioning and placement of the sling. The Metzenbaum scissors were removed. The vaginal incision was closed with a [id number] 2-0 Vicryl suture. We then deflated the catheter balloon and removed the Mclaughlin. Cystoscopy was performed with a 22 Tamazight cystoscope and a 70 degree lens. No bladder injury or mesh material within the bladder was identified. The scope was then removed. The patient tolerated the procedure well with no complications. She was taken to the recovery room in stable condition.
[2024-01-03] MEDS: Phenazopyridine 200 MG TAB PO (12:47)
--- NOTE | 2024-01-03 12:53 | W.ANESPOSTOP ---
Postoperative Evaluation Date, Time and Location Date Performed: 01/03/24 Time Performed: 12:53 Patient Location: Day Surgery Unit Vital Signs Most Recent Imported Vital Signs: Most Recent Vital Signs Temp Pulse Resp BP Pulse Ox 36.2 C L 80 18 104/65 94 01/03/24 12:21 01/03/24 12:21 01/03/24 12:21 01/03/24 12:21 01/03/24 12:21 Pain Score Most Recent Pain Score: Most Recent Pain Score Pain Level 0 01/03/24 12:21 Assessment Mental Status: Awake (Alert & Oriented to Patient Baseline) Airway and Respiratory Function: Patent airway with normal (patient baseline) respiratory exam Cardiovascular Function: Hemodynamically Stable Hydration Status: Adequately Hydrated Nausea & Vomiting: No Nausea or Vomiting Pain: Pt. Denies Any Pain Peripheral Nerve Block: Patient did not receive a nerve block
== END 2024-01-03 13:15 | disposition home or self-care (01) ==
PROVIDERS: PCP Student in an Organized Health Care Education/Training Program; Visit Provider Urology
PROC: (CPT 57288; principal; 2024-01-03 09:30)
DX: N39.3 Stress incontinence (female) (male) (principal); E78.5 Hyperlipidemia, unspecified; E11.9 Type 2 diabetes mellitus without complications; F41.8 Other specified anxiety disorders
CPT/HCPCS: 57288; C1781; J0131; J0690; J1100; J1885; J2001; J2004; J2250; J2405; J2704; J3010

== ENCOUNTER 2024-03-14 02:09 | Outpatient (CLI) | payer OTHER, SELFPAY ==
[2024-03-14 17:25] LABS: TSH (W/Ref FT4) 0.62 uIU/mL (0.36-3.74)
== END 2024-03-14 02:10 | disposition home or self-care (01) ==
LOC: LBO 02:09
PROVIDERS: PCP Student in an Organized Health Care Education/Training Program; Referring Provider Student in an Organized Health Care Education/Training Program; Visit Provider Student in an Organized Health Care Education/Training Program
DX: R53.83 Other fatigue (principal); F41.9 Anxiety disorder, unspecified; T73.3XXS Exhaustion due to excessive exertion, sequela; E03.9 Hypothyroidism, unspecified; E11.65 Type 2 diabetes mellitus with hyperglycemia; M79.644 Pain in right finger(s); M79.645 Pain in left finger(s); Z86.59 Personal history of other mental and behavioral disorders; R21 Rash and other nonspecific skin eruption; F17.200 Nicotine dependence, unspecified, uncomplicated
CPT/HCPCS: 36415; 84443

== ENCOUNTER 2024-05-24 01:42 | Outpatient (CLI) | payer OTHER, SELFPAY ==
[2024-05-24 14:29] LABS: TSH (W/Ref FT4) 0.05 uIU/mL (0.36-3.74)
[2024-05-24 16:45] LABS: FREE T4 1.24 ng/dL (0.76-1.46)
== END 2024-05-24 01:43 | disposition home or self-care (01) ==
LOC: LBO 01:42
PROVIDERS: PCP Student in an Organized Health Care Education/Training Program; Referring Provider Student in an Organized Health Care Education/Training Program; Visit Provider Student in an Organized Health Care Education/Training Program
DX: E03.9 Hypothyroidism, unspecified (principal)
CPT/HCPCS: 36415; 84439; 84443

== ENCOUNTER 2024-07-17 02:32 | Outpatient (CLI) | payer OTHER, SELFPAY ==
[2024-07-17 08:25] LABS: Abs Immature Grans 0.03 10^3/uL (0.0-0.06); Absolute Basophil Count 0.06 10^3/uL (0.0-0.2); Absolute Lymphocyte Count 3.22 10^3/uL (1.2-3.4); Absolute Monocyte Count 0.67 10^3/uL (0.1-0.8); Absolute Neutrophil Count 5.46 10^3/uL (1.2-6.7); Basophils % 0.6 %; Eosinophils % 3.1 %; HCT 43.7 % (36.0-46.0); HGB 14.4 g/dL (11.2-15.7); Immature Grans % 0.3 %; Lymphocytes % 33.1 %; MCV 88 fL (80-95); Monocytes % 6.9 %; Platelet Count 264 10^3/uL (130-400); RBC 4.96 10^6/uL (3.93-5.22); RDW 13.7 % (11.7-14.6); RDW-SD 43.8 fL; WBC 9.74 10^3/uL (4.4-10.8)
[2024-07-17 09:08] LABS: Folate 6.5 ng/mL (8.6-20.0)
[2024-07-17 09:16] LABS: Iron 33 ug/dL (50-170); Total Iron Binding Capacity 384 ug/dL (250-450); Transferrin Sat 9 % (15-50)
[2024-07-17 09:21] LABS: ALT 22 U/L (14-59); AST 12 U/L (15-37); Albumin 3.9 g/dL (3.4-5.0); Alkaline Phosphatase 108 U/L (46-116); Anion Gap 8.7 mmol/L (3-11); BUN 18 mg/dL (7-18); Bilirubin, Total 0.31 mg/dL (0.2-1.0); CO2 28.3 mmol/L (21.0-32.0); CREATININE 0.9 mg/dL (0.55-1.02); Calcium 9.5 mg/dL (8.5-10.1); Chloride 105 mmol/L (98-107); Estimated GFR 75.97 (mL/min/1.73m2); Glucose 192 mg/dL (74-106); Potassium 4.5 mmol/L (3.5-5.1); Sodium 142 mmol/L (136-145); Total Protein 7.4 g/dL (6.4-8.2); Vitamin B12 567 pg/mL (193-986); Vitamin D 25 Total 22.4 ng/mL (30-100)
== END 2024-07-17 02:33 | disposition home or self-care (01) ==
LOC: LBO 02:32
PROVIDERS: PCP Student in an Organized Health Care Education/Training Program; Referring Provider Student in an Organized Health Care Education/Training Program; Visit Provider Student in an Organized Health Care Education/Training Program
DX: R74.8 Abnormal levels of other serum enzymes (principal); Z91.89 Other specified personal risk factors, not elsewhere classified; R73.9 Hyperglycemia, unspecified; G89.29 Other chronic pain
CPT/HCPCS: 36415; 80053; 82306; 82607; 82746; 83540; 83550; 85025

== ENCOUNTER 2024-10-11 03:54 | Outpatient (CLI) | payer OTHER, SELFPAY ==
[2024-10-11 14:01] LABS: Hemoglobin A1C 7.1 % (<5.7)
[2024-10-12 13:36] LABS: IgA 194 mg/dL (85-499); Interpretation (See Note); Tissue Transglutaminase IgA <4.0 CU (<20.0)
== END 2024-10-11 03:55 | disposition home or self-care (01) ==
LOC: LBO 03:54
PROVIDERS: PCP Nurse Practitioner Family; Visit Provider Emergency Medicine
DX: E11.9 Type 2 diabetes mellitus without complications (principal); K90.9 Intestinal malabsorption, unspecified
CPT/HCPCS: 36415; 82784; 83516; 83036

== ENCOUNTER 2024-10-25 17:37 | Outpatient (REF) | payer OTHER, SELFPAY ==
[2024-10-25 20:51] LABS: Iron 27 ug/dL (50-170); Total Iron Binding Capacity 330 ug/dL (250-450); Transferrin Sat 8 % (15-50)
[2024-10-25 22:12] LABS: Folate > 20.0 ng/mL (8.6-20.0); TSH (W/Ref FT4) 1.31 uIU/mL (0.36-3.74); Vitamin D 25 Total 66 ng/mL (30-100)
[2024-10-26 10:02] LABS: Ferritin 46 ng/mL (8-252)
[2024-10-31 08:58] LABS: Methylmalonic Acid 0.21 nmol/mL (<=0.40)
== END 2024-10-25 17:38 | disposition home or self-care (01) ==
LOC: LBN 17:37
PROVIDERS: PCP Nurse Practitioner Family; Visit Provider Nurse Practitioner Family
DX: E53.8 Deficiency of other specified B group vitamins (principal); D64.9 Anemia, unspecified; E55.9 Vitamin D deficiency, unspecified; E03.9 Hypothyroidism, unspecified
CPT/HCPCS: 80186; 82306; 82728; 82746; 83540; 83550; 84443

== ENCOUNTER 2024-12-07 01:24 | Outpatient (CLI) | payer SELFPAY ==
--- NOTE | 2024-12-07 15:20 | DI.RAD_ITS ---
Exam(s) XR THUMB RT EXAM: XR THUMB RT CLINICAL HISTORY: base of thumb ? do we need hand film ,79.644 PAIN RT FINGER. TECHNIQUE: 2D digital imaging was performed. COMPARISON: No exams were available for comparison FINDINGS: 3 views No evidence of acute fracture or dislocation. There are moderate degenerative changes at the 1st car pometacarpal joint evident. No obvious degenerative changes in the metacarpophalangeal and interphal angeal joints of the thumb. IMPRESSION: Moderate degenerative changes at the 1st carpometacarpal joint. DATA REPOSITORY: RADIATION DOSE DELIVERED:
--- NOTE | 2024-12-07 15:21 | DI.RAD_ITS ---
Exam(s) XR THUMB LT EXAM: XR THUMB LT CLINICAL HISTORY: thumb pain-? do we need hand film for base? M79.645 PAIN LEFT FINGER. TECHNIQUE: 2D digital imaging was performed. COMPARISON: CR XR THUMB RT from 12/07/2024 FINDINGS: 3 views No evidence of acute fracture or dislocation. There are moderate degenerative changes at the 1st car pometacarpal joint articulation between the thumb metacarpal and the trapezium of the distal carpal r ow. Other articulations of the thumb appear unremarkable No osseous lesions. No radiopaque foreign bodies IMPRESSION: Moderate degenerative changes at the 1st carpometacarpal joint. DATA REPOSITORY: RADIATION DOSE DELIVERED:
--- NOTE | 2024-12-07 15:40 | DI.RAD_ITS ---
Exam(s) XR SHOULDER LT COMPLETE 2+V EXAM: XR SHOULDER LT COMPLETE 2+V CLINICAL HISTORY: left shoulder pain M25.512. TECHNIQUE: 2D digital imaging was performed. COMPARISON: CR XR SHOULDER RT COMPLETE 2+V from 12/07/2024 FINDINGS: Five views. No evidence of fracture nor dislocation new kiran of the subacromial space and there are no abnormal s oft calcifications. There are no degenerative changes in the glenohumeral joint. Minimal degenerati ve changes in the AC joint. Coracoid process is intact. Bone density is normal. No osseous lesions . IMPRESSION: No significant radiograph findings in left shoulder. DATA REPOSITORY: RADIATION DOSE DELIVERED:
--- NOTE | 2024-12-07 15:40 | DI.RAD_ITS ---
Exam(s) XR SHOULDER RT COMPLETE 2+V EXAM: XR SHOULDER RT COMPLETE 2+V CLINICAL HISTORY: right shoulder pain M25.511. TECHNIQUE: 2D digital imaging was performed. COMPARISON: CR XR SHOULDER RT COMPLETE 2+V from 09/25/2022 FINDINGS: Five views There is no evidence of fracture or dislocation. The previously present 8 x 4 millimeter calcific de nsity in the soft tissues adjacent to the greater tuberosity is no longer seen. However, on the axia l view there is a smaller calcific density measuring 3 x 2 mm located anteriorly, anterior to the les ser tuberosity. The subacromial space exhibits normal height and no calcifications. There are mild degenerative cantrell ges in the glenohumeral joint. No obvious degenerative changes in the AC joint IMPRESSION: Mild degenerative changes in the glenohumeral joint. Small calcific density seen anteriorly but measuring significantly less than the previously present 8 x 4 mm calcification which was evident in the soft tissues adjacent To the greater tuberosity on the images of 09/25/2022. DATA REPOSITORY: RADIATION DOSE DELIVERED:
== END 2024-12-07 01:44 ==
PROVIDERS: PCP Nurse Practitioner Family; Visit Provider Nurse Practitioner Family
DX: M25.512 Pain in left shoulder (principal); M79.644 Pain in right finger(s); M79.645 Pain in left finger(s); M25.511 Pain in right shoulder
CPT/HCPCS: 73030; 73140

== ENCOUNTER 2025-01-01 13:30 | Outpatient (CLI) | payer SELFPAY ==
[2025-01-01 13:28] LABS: ESR 3 mm/hr (0-30)
[2025-01-01 13:54] LABS: C-Reactive Protein < 0.50 mg/dL (<or=0.5)
== END 2025-01-01 13:31 | disposition home or self-care (01) ==
LOC: LBO 13:30
PROVIDERS: PCP Nurse Practitioner Family; Visit Provider Nurse Practitioner Family
DX: M25.59 Pain in other specified joint (principal)
CPT/HCPCS: 36415; 85652; 86140